=== PATIENT | female | born 1975 | race Caucasian/White ===

== ENCOUNTER → 2016-10-24 | Outpatient (CLI) | payer MEDICAID ==
[~2016-10-24] MED LIST: DIAZEPAM5 MG PO; EFFEXOR XR 75MG75 MG PO; GABAPENTIN TAB600 MG PO; HYDROCODONE1 TABLET PO; KEFLEX 500MG.500 MG PO; PERCOCET 325 MG1 TA3 PO; PREDNISONE 10MG10 MG PO; SEPTRA DS 800 M1 TAB PO; VENLAFAXINE HCL50 MG PO; VICODIN 5/500 T1 TAB PO
[2016-10-24 16:00] LABS: AMPHETAMINES/METAMPHETAMINES NEGATIVE ng/mL (<1000)
[2016-11-01 10:40] LABS: Opiates Negative (Cutoff=100)
== END ==
LOC: LAB 13:40
PROVIDERS: Emergency Medicine
DX: Z79.899 Other long term (current) drug therapy (principal)

== ENCOUNTER 2017-03-18 21:46 | Emergency (ER) | payer MEDICAID ==
[~2017-03-18] VITALS: Ht 160 cm; Wt 57.2 kg
--- NOTE | 2017-03-18 22:35 | Emergency Room Report ---
History of Present Illness Time Seen by [id number] Presenting Problem in Triage Pt arrived:Walked Presenting Problem:CHRONIC low back pain exacerbation not related to recent re- injury or stress. 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 N Clinical Suspician of Infection? N Mental Status: 1 - Regular (Normal Baseline) Sepsis Risk:Low Sepsis Risk Have you (or family members/close friends) recently traveled outside the [place]? N If Yes, where/when: Have you had exposure to infectious disease within the past month? N TB? Other? Specify: Source patient, RN notes reviewed, family, old records Exam Limitations no limitations Comment pt with back pain with hx of l/s disc injury and dyemennorhea Cardiac Chest Pain Chest pain indicative of cardiac No Timing/Duration this evening Severity moderate ALLERGIES Coded Allergies: MDX - Azithromycin (AZITHROMYCIN) (Mild, DEHYDRATION 02/04/15) Home Medications Reported Medications Diazepam (Diazepam 5MG) 5 MG PO DAILY OXYCODONE 7.5MG/[id number] (Oxycodon-Acetaminophen 7.5-325) 1 TAB PO TID VENLAFAXINE HCL (Effexor 50MG (GEQ)) 75 MG PO DAILY Gabapentin 600 MG PO TID History Medical History General CAD? No Angina: No [place]: No Hypertension? No Hyperlipidemia? No CHF? No COPD? No Asthma? No Anemia? No Hernia? No Thyroid Problems? No Hypothyroidism? No CVA? No Seizures? No Diabetes? No End Stage Renal Disease? No UTI? Yes Stones? No GB Disease: No Nephritic Syndrome? No Asplenia? No Hepatitis? No Sickle Cell Disease? No Arthritis? Yes Cataracts? No Glaucoma? No MRSA? No TB? No Cancer? No Immunization Hx DT/Tetanus 5-10 YRS Surgical Hx Previous Surgery?Y C-SECTIONS X 4 TUBAL LIGATION (TWICE) HAT CONDITIONER Hx LMP Now Social History Smoking Hx Smoker: Current Every Day Smoker Tobacco: Yes Type Cigarettes Packs/day < 1 Pack Alcohol Alcohol: No Drugs none Review of Systems All Other Systems Reviewed and Negative Constitutional denies fever Eyes denies drainage ENT denies: ear discharge, epistaxis, throat pain. Respiratory denies cough, denies shortness of breath, denies wheezing Cardiovascular denies chest pain, denies palpitations, denies syncope Gastrointestinal denies abdominal pain, denies diarrhea, denies vomiting Genitourinary see HPI, abnormal vaginal bleeding. denies: dysuria, frequency, hesitancy, hematuria. Musculoskeletal see HPI, back pain, denies joint pain, denies neck pain Skin denies rash Psychiatric/Neurological denies headache, denies seizure Physical Exam Vital Signs Vital Signs Date Time Temp Pulse Resp B/P Pulse O2 O2 Flow FiO2 Ox Delivery Rate 03/18 2228 98.6 87 14 96 03/18 215 98.6 87 14 96 - WBC >12,000 or <4,000 or 10% bands? 2 or more SIRS Criteria Met? B/P: MAP:85 Creatinine >2.0? UA output<0.5ml/kg/hr for 2 hrs? Platelet count >100,000? Lactate >2.0mmol/1? INR >1.2 or PTT > than 60 sec? Evidence of Organ Dysfunction? Provider documented clinical suspician of infection? N Sepsis Criteria Count: 0 Sepsis Risk: Low Sepsis Risk General Appearance no apparent distress Eye Exam - bilateral eye PERRL, bilateral eye EOMI Ear, Nose, Throat normal ENT inspection Neck supple Respiratory Status No: respiratory distress. 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 No Departure Departure Time of Disposition 2226 Disposition DC Home or Self Care(routine) Clinical Impression Primary Impression: Lumbar disc disease with radiculopathy Secondary Impressions: Dysmenorrhea, unspecified Condition STABLE Patient Instructions DI for Low Back Pain Additional Instructions see pcp for follow up Discharge Counseling Counseled pt/family regarding diagnosis, test results, medications/RX, follow up needs ED Critical Care Critical Care No at 2234
--- NOTE | 2017-03-18 22:35 | Emergency Room Report ---
History of Present Illness Time Seen by [id number] Presenting Problem in Triage Pt arrived:Walked Presenting Problem:CHRONIC low back pain exacerbation not related to recent re- injury or stress. 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 N Clinical Suspician of Infection? N Mental Status: 1 - Regular (Normal Baseline) Sepsis Risk:Low Sepsis Risk Have you (or family members/close friends) recently traveled outside the [place]? N If Yes, where/when: Have you had exposure to infectious disease within the past month? N TB? Other? Specify: Source patient, RN notes reviewed, family, old records Exam Limitations no limitations Comment pt with back pain with hx of l/s disc injury and dyemennorhea Cardiac Chest Pain Chest pain indicative of cardiac No Timing/Duration this evening Severity moderate ALLERGIES Coded Allergies: MDX - Azithromycin (AZITHROMYCIN) (Mild, DEHYDRATION 02/04/15) Home Medications Reported Medications Diazepam (Diazepam 5MG) 5 MG PO DAILY OXYCODONE 7.5MG/[id number] (Oxycodon-Acetaminophen 7.5-325) 1 TAB PO TID VENLAFAXINE HCL (Effexor 50MG (GEQ)) 75 MG PO DAILY Gabapentin 600 MG PO TID History Medical History General CAD? No Angina: No [place]: No Hypertension? No Hyperlipidemia? No CHF? No COPD? No Asthma? No Anemia? No Hernia? No Thyroid Problems? No Hypothyroidism? No CVA? No Seizures? No Diabetes? No End Stage Renal Disease? No UTI? Yes Stones? No GB Disease: No Nephritic Syndrome? No Asplenia? No Hepatitis? No Sickle Cell Disease? No Arthritis? Yes Cataracts? No Glaucoma? No MRSA? No TB? No Cancer? 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 Respiratory denies cough, denies shortness of breath, denies wheezing Cardiovascular denies chest pain, denies palpitations, denies syncope Gastrointestinal denies abdominal pain, denies diarrhea, denies vomiting Genitourinary see HPI, abnormal vaginal bleeding. denies: dysuria, frequency, hesitancy, hematuria. Musculoskeletal see HPI, back pain, denies joint pain, denies neck pain Skin denies rash Psychiatric/Neurological denies headache, denies seizure Physical Exam Vital Signs Vital Signs Date Time Temp Pulse Resp B/P Pulse O2 O2 Flow FiO2 Ox Delivery Rate 03/18 2228 98.6 87 14 96 03/18 215 98.6 87 14 96 - WBC >12,000 or <4,000 or 10% bands? 2 or more SIRS Criteria Met? B/P: MAP:85 Creatinine >2.0? UA output<0.5ml/kg/hr for 2 hrs? Platelet count >100,000? Lactate >2.0mmol/1? INR >1.2 or PTT > than 60 sec? Evidence of Organ Dysfunction? Provider documented clinical suspician of infection? N Sepsis Criteria Count: 0 Sepsis Risk: Low Sepsis Risk General Appearance no apparent distress Eye Exam - bilateral eye PERRL, bilateral eye EOMI Ear, Nose, Throat normal ENT inspection Neck supple Respiratory Status No: respiratory distress. 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 No Departure Departure Time of Disposition 2226 Disposition DC Home or Self Care(routine) Clinical Impression Primary Impression: Lumbar disc disease with radiculopathy Secondary Impressions: Dysmenorrhea, unspecified Condition STABLE Patient Instructions DI for Low Back Pain Additional Instructions see pcp for follow up Discharge Counseling Counseled pt/family regarding diagnosis, test results, medications/RX, follow up needs ED Critical Care Critical Care No at 2234
[2017-03-18 22:57] VITALS: BP 115/71
--- OUTSIDE RECORDS SUMMARY | 2017-03-18 23:10 | External Medical Summary Rpt ---
Author Author , HASMUKH Organization HASMUKH Address Unknown Phone [email or web address] Care Team Providers Care Equipment Processer Storage Name Role Phone [employer] Unavailable Unavailable INC, [employer] DOUG ARRON, DOUG Unavailable Unavailable ARRON SAUL BLACKBURN MD, PSC, Unavailable Unavailable SAUL BLACKBURN MD, PSC BESSON, VARGAS Lynn, Unavailable Unavailable BESVARGAS SANCHEZ OATES, OATES Unavailable Unavailable BRACKEN MAYTE, BRACKEN Unavailable Unavailable MAYTE BRACKEN MAYTE, BRACKEN Unavailable Unavailable MAYTE HAROLDO MAUREEN, HAROLDO Unavailable Unavailable MAUREEN HAROLDO MAUREEN, HAROLDO Unavailable Unavailable MAUREEN BUX ANJ, BUX ANJ Unavailable Unavailable [facility] GARCIA PACHECO, GARCIA Unavailable Unavailable [facility] GARCIA PACHECO, GARCIA Unavailable Unavailable [facility] Un[facility], [facility] Unavailable Unavailable PHYSICIANS, [facility] HARMAN LARA, HARMAN Unavailable Unavailable LARA DUFF MAYTE, DUFF MAYTE Unavailable Unavailable [facility], [facility] Unavailable Unavailable JOSE JOSÉ MIGUEL, JOSE Unavailable Unavailable JOSÉ MIGUEL [facility], Unavailable Unavailable [facility] GIUSEPPE ANT, GIUSEPPE Unavailable Unavailable ANT YAIR, YAIR Unavailable Unavailable YAIR VICENTA, YAIR Unavailable Unavailable VICENTA PROCTOR BEA, PROCTOR BEA Unavailable Unavailable [facility] Un[facility] Un[facility], [facility], Unavailable Unavailable [facility] FANG TRA, FANG TRA Unavailable Unavailable GHANSHYAM CHR, GHANSHYAM Unavailable Unavailable CHR GHANSHYAM CHR, GHANSHYAM Unavailable Unavailable [facility] Unavailable Unavailable [facility], [facility] Unavailable Unavailable [facility], [facility] Unavailable Unavailable [facility], [facility] Unavailable Unavailable SERVICES, [facility] REJI GONZALES JR Unavailable Unavailable Nito, REJI GONZALES JR, MORGAN Unavailable Unavailable GERSON NIETO, KARL Unavailable Unavailable GERSON BONNER VIR, BONNER VIR Unavailable Unavailable [facility] VIR, [facility] VIR Unavailable Unavailable ROEBKER JAM, ROEBKER Unavailable Unavailable JAM ROEBKER JAM, ROEBKER Unavailable Unavailable JAM OLIVEIRA, OLIVEIRA Unavailable Unavailable BARBDARVIN BOOTH, BARB Unavailable Unavailable LEOBARDO ROJO, RAJESH ROJO Unavailable Unavailable ARI ANASTACIA, ARI Unavailable Unavailable ANASTACIA [facility], Unavailable Unavailable [facility], Unavailable Unavailable [facility] JA[facility], Unavailable Unavailable [facility] JAIME [facility] Unavailable Unavailable #[id number], [facility] Unavailable Unavailable #591, [facility] # Unavailable Unavailable [id number], [facility] # [id number] Purpose Continuity of Care Document - 11-03-2007 through 2016 Problems Code Diagnosis DOS Provider Status R300 DYSURIA 02-13-2017 [facility] [id number] OTHER LONG 02-13-[address] [facility] DRUG THERAPY K047 PERIAPICAL 12-19-2016 [facility] WITHOUT GROUP SINUS M5116 INTERVERTEB 12-19-2016 [facility] R[facility] DISC [facility] D/O GROUP W/RADICULOP ATHY LUMB RGN K029 DENTAL 11-27-2016 [facility]ERGENCY UNSPECIFIED PHYSICIANS K0889 OTHER 11-27-2016 [facility] SPECIFIED EMERGENCY DISORDERS PHYSICIANS OF TEETH SUPPORT STRCT Z1231 ENCOUNTER 11-20-2016 [facility] SCREENING [facility]ANS MAMMO MALIG GROUP NEOPLASM BREAST M1288 OTHER 10-24-2016 [facility] SPECIFIC PHYSICIANS ARTHROPATHI GROUP ES NEC OTHER SPEC SITE M9983 OTHER 10-24-2016 [facility] BIOMECHANIC PHYSICIANS AL LESIONS GROUP OF LUMBAR REGION M4316 SPONDYLOLIS 10-10-2016 [facility] REGION M5117 INTERVERTEB 10-10-2016 [facility] D/O IMAGING ASS W/RADICULOP ATHY LS RGN M545 LOW BACK 10-10-2016 [facility] M5126 OTH 09-26-2016 [facility] INTERVERTEB PHYSICIANS RAL DISC GROUP DISPLACEMEN T LUMBAR RGN M5127 OTH 01-18-2016 [facility] RAL DISC INC DISPLACEMEN T LS REGION R1031 RIGHT LOWER 09-17-2015 [facility] PAIN PHYSICIANS R197 DIARRHEA 09-17-2015 [facility] UNSPECIFIED [facility]ERGENCY PHYSICIANS 89270 DEGEN 03-31-2015 SAUL BLACKBURN LUMBAR/LUMB , PSC OSACRAL INTERVERTEB RAL DISC 7244 THORACIC/NEAL 03-31-2015 TASHA MURILLO MD, PSC NEURITIS/RA DICULITIS UNSPEC V5789 OTHER 12-09-2014 [facility] ION PROCEDURE OTHER 4610 ACUTE 09-21-2014 [facility] MAX[facility]ARY [facility] SINUSITIS PHYSICIANS 66267 DISPLCMT 09-10-2014 [facility] 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 7384 ACQUIRED 09-09-2014 [facility] 7213 LUMBOSACRAL 08-03-2014 [facility] SPONDYLOSIS IMAGING ASS WITHOUT MYELOPATHY 7245 UNSPECIFIED 08-03-2014 [facility] V571 OTHER 07-12-2014 [facility] CON[facility] 73152 CHEST PAIN 03-04-2014 GHANSHYAM CHR UNSPECIFIED 7242 LUMBAGO 12-08-2013 JOSE JOSÉ MIGUEL 6212 HYPERTROPHY 12-02-2013 [facility] OF UTERUS 6253 DYSMENORRHE 12-02-2013 [facility] A 6259 UNSPEC 12-02-2013 [facility] SYMPTOM ASSOC W/FEMALE GENITAL ORGANS 80444 ABDOMINAL 12-02-2013 G[facility] PAIN RIGHT LOWER QUADRANT 6238 OTHER 11-30-2013 EN[facility] HU SPECIFIED NONINFLAMMA TORY DISORDER VAGINA 6829 CELLULITIS 12-08-2012 KARL GERSON AND ABSCESS OF UNSPECIFIED SITE 07707 GENERALIZED 08-21-2012 [facility] ANXIETY DISORDER V5869 LONG-TERM 08-21-2012 [facility] VIR (CURRENT) USE OF OTHER MEDICATIONS 7840 HEADACHE 08-20-2012 ROEBKER JAM 920 CONTUSION 08-20-2012 HAROLDO MAUREEN OF FACE SCALP AND NECK EXCEPT EYE 9599 INJURY 08-20-2012 ROEBKER JAM OTHER AND UNSPECIFIED UNSPECIFIED SITE 6235 LEUKORRHEA 04-19-2012 [facility] SPECIFIED MED CTR INFECTIVE 5283 CELLULITIS 03-17-2011 [facility] ABSCESS [facility] OF ORAL INTERNAL SOFT MED TISSUES 6826 CELLULITIS 03-17-2011 [facility] EMERGENCY OF LEG SERVICES EXCEPT FOOT 1109 DERMATOPHYT 01-29-2011 [facility] OSIS OF [facility] UNSPECIFIED INTERNAL SITE MEDI 76330 ABDOMINAL 01-06-2011 [facility] PAIN, EMERGENCY GENERALIZED SERVICES 7820 DISTURBANCE 08-28-2010 [facility] 84442 OTHER DRUG 08-28-2010 [facility] 91990 UNSPECIFIED 11-27-2008 [facility] INFECTIVE [facility] OTITIS INTERNAL EXTERNA MED 3814 NONSUPPRATV 11-27-2008 [facility] OTITIS [facility] MEDIA NOT INTERNAL SPEC MED ACUT/CHRON 485 BRONCHOPNEU 11-27-2008 [facility] MONIA [facility] ORGANISM INTERNAL UNSPECIFIED MED 7862 COUGH 11-27-2008 [facility] INTERNAL MED 00480 OTHER 11-20-2007 [facility] ANXIETY [facility] STATES INTERNAL MED 15305 RESTLESS 11-20-2007 [facility] LEGS [facility] SYNDROME INTERNAL MED 26542 UNSPECIFIED 11-14-2007 [facility] VAGINITIS [facility] AND INTERNAL VULVOVAGINI MED TIS 7062 SEBACEOUS 11-14-2007 [facility] CYST [place] INTERNAL MED K02.9 Dental caries, unspecified K08.89 Other specified disorders of teeth and supporting structures Medications Na ND Rx Da Fi Fi Am Da Di Ph RX Ph St me C No te ll ll ou ys ag ar # ys at rm s nt no ma ic us Or Da si cy ia de te s n re d OX 13 07 07 90 30 00 CL Ac YC 10 -0 -2 .0 00 IN ti OD 70 5- 8- 00 00 IC ve ON 04 20 20 43 E- 40 17 17 59 PH AC 1 11 AR ET MA AM CY IN OP HE N 5- 32 5 TR 00 07 07 30 30 00 CL Ac AZ 60 -0 -2 .0 00 IN ti OD 36 5- 8- 00 00 IC ve ON 16 20 20 43 E 02 17 17 59 PH 50 1 06 AR MA MG CY TA BL ET FL 68 07 07 5. 5 00 CL Ac UC 46 -0 -2 00 00 IN ti ON 20 5- 8- 0 00 IC ve AZ 10 20 20 43 OL 34 17 17 59 PH E 0 05 AR 15 MA 0 CY MG TA BL ET PH 69 07 07 10 5 00 CL Ac EN 36 -0 -2 .0 00 IN ti AZ 70 5- 8- 00 00 IC ve OP 16 20 20 43 YR 30 17 17 59 PH ID 4 04 AR IN MA E CY 20 0 MG TA B CI 16 07 07 14 7 00 CL Ac NH 57 -0 -2 .0 00 IN ti OF 10 5- 8- 00 00 IC ve LO 41 20 20 43 XA 21 17 17 59 PH CI 0 03 AR N MA HC CY L 50 0 MG TA B GA 68 06 07 90 30 00 CL Ac BA 38 -3 -2 .0 00 IN ti PE 20 0- 8- 00 00 IC ve NT 20 20 20 42 IN 50 17 17 01 PH 5 20 AR 80 MA 0 CY MG TA BL ET GA 68 06 06 90 30 00 CL Ac BA 38 -0 -3 .0 00 IN ti PE 20 1- 0- 00 00 IC ve NT 20 20 20 42 IN 50 17 17 01 PH 5 20 AR 80 MA 0 CY MG TA BL ET OX 13 06 06 90 30 00 CL Ac YC 10 -0 -3 .0 00 IN ti OD 70 7- 0- 00 00 IC ve ON 20 20 43 E- 40 17 17 33 PH AC 1 32 AR ET MA AM CY IN OP HE N 5- 32 5 OX 13 05 06 90 30 00 CL Ac YC 10 -1 -0 .0 00 IN ti OD 70 0- 2- 00 00 IC ve ON 20 20 43 E- 40 17 17 07 PH AC 1 04 AR ET MA AM CY IN OP HE N 5- 32 5 GA 68 05 05 90 30 00 CL Ac BA 38 -0 -2 .0 00 IN ti PE 20 3- 6- 00 00 IC ve NT 20 20 20 42 IN 50 17 17 01 PH 5 20 AR 80 MA 0 CY MG TA BL ET VE 68 05 05 30 30 00 CL Ac NL 38 -0 -2 .0 00 IN ti AF 20 3- 6- 00 00 IC ve AX 03 20 20 42 IN 61 17 17 01 PH E 6 19 AR HC MA L CY ER 15 0 MG CA P IB 53 04 05 16 8 00 HO Ac UP 74 -2 -1 .0 00 ME ti RO 60 1- 9- 00 06 TO ve FE 46 20 20 08 WN N 50 17 17 55 60 5 31 PH 0 AR MG MA CY TA BL OF ET CY NT HI AN A FL 68 04 05 3. 9 00 CL Ac UC 46 -2 -1 00 00 IN ti ON 20 4- 9- 0 00 IC ve AZ 10 20 20 42 OL 34 17 17 89 PH E 0 74 AR 15 MA 0 CY MG TA BL ET CL 63 04 05 30 10 00 WA Ac IN 30 -1 -1 .0 00 L- ti DA 40 8- 2- 00 06 MA ve MY 69 20 20 11 RT CI 30 17 17 00 N 1 85 PH HC AR L MA 30 CY 0 MG #5 84 CA PS UL E OX 13 04 05 90 30 00 CL Ac YC 10 -1 -0 .0 00 IN ti OD 70 2- 5- 00 00 IC ve ON 11 29 20 42 E- 40 17 17 77 PH AC 1 16 AR ET MA AM CY IN OP HE N 5- 32 5 GA 68 04 04 90 30 00 CL Ac BA 38 -0 -2 .0 00 IN ti PE 20 5- 8- 00 00 IC ve NT 20 20 20 42 IN 50 17 17 01 PH 5 20 AR 80 MA 0 CY MG TA BL ET VE 68 04 04 30 30 00 CL Ac NL 38 -0 -2 .0 00 IN ti AF 20 5- 8- 00 00 IC ve AX 03 20 20 42 IN 61 17 17 01 PH E 6 19 AR HC MA L CY ER 15 0 MG CA P OX 13 03 04 90 30 00 CL Ac YC 10 -1 -0 .0 00 IN ti OD 70 5- 7- 00 00 IC ve ON 11 29 20 42 E- 40 17 17 52 PH AC 1 25 AR ET MA AM CY IN OP HE N 5- 32 5 VE 68 03 03 30 30 00 CL Ac NL 38 -0 -3 .0 00 IN ti AF 20 7- 1- 00 00 IC ve AX 03 20 20 42 IN 61 17 17 01 PH E 6 19 AR HC MA L CY ER 15 0 MG CA P GA 68 03 03 90 30 00 CL Ac BA 38 -0 -3 .0 00 IN ti PE 20 7- 1- 00 00 IC ve NT 20 20 20 42 IN 50 17 17 01 PH 5 20 AR 80 MA 0 CY MG TA BL ET OX 13 02 03 90 30 00 CL Ac YC 10 -1 -1 .0 00 IN ti OD 70 5- 0- 00 00 IC ve ON 20 20 42 E- 40 17 17 23 PH AC 1 89 AR ET MA AM CY IN OP HE N 5- 32 5 GA 68 02 03 90 30 00 CL Ac BA 38 -0 -0 .0 00 IN ti PE 20 8- 3- 00 00 IC ve NT 20 20 20 42 IN 50 17 17 01 PH 5 20 AR 80 MA 0 CY MG TA BL ET VE 68 02 03 30 30 00 CL Ac NL 38 -0 -0 .0 00 IN ti AF 20 8- 3- 00 00 IC ve AX 03 20 20 42 IN 61 17 17 01 PH E 6 19 AR HC MA L CY ER 15 0 MG CA P OX 68 01 02 63 21 00 CL Ac YC 30 -2 -1 .0 00 IN ti OD 80 5- 7- 00 00 IC ve ON 84 20 20 42 E- 10 17 17 01 PH AC 1 07 AR ET MA AM CY IN OP HE N 5- 32 5 GA 68 01 02 90 30 00 CL Ac BA 38 -1 -0 .0 00 IN ti PE 20 0- 3- 00 00 IC ve NT 20 20 20 41 IN 50 17 17 82 PH 5 64 AR 80 MA 0 CY MG TA BL ET VE 68 01 02 30 30 00 CL Ac NL 38 -1 -0 .0 00 IN ti AF 20 0- 3- 00 00 IC ve AX 03 20 20 41 IN 61 17 17 82 PH E 6 66 AR HC MA L CY ER 15 0 MG CA P OX 68 12 01 90 30 00 CL Ac YC 30 -2 -2 .0 00 IN ti OD 80 8- 7- 00 00 IC ve ON 84 20 20 41 E- 10 16 17 74 PH AC 1 80 AR ET MA AM CY IN OP HE N 5- 32 5 DI 51 12 01 30 30 00 CL Ac AZ 86 -2 -2 .0 00 IN ti EP 20 8- 7- 00 00 IC ve AM 06 20 20 41 5 31 16 17 74 PH 0 81 AR MG MA CY TA BL ET GA 68 12 01 90 30 00 CL Ac BA 38 -1 -1 .0 00 IN ti PE 20 3- 3- 00 00 IC ve NT 20 20 20 41 IN 50 16 17 34 PH 5 52 AR 80 MA 0 CY MG TA BL ET VE 65 12 01 30 30 00 CL Ac NL 86 -1 -1 .0 00 IN ti AF 20 3- 3- 00 00 IC ve AX 69 20 20 40 IN 70 16 17 85 PH E 5 47 AR HC MA L CY ER 15 0 MG CA P DI 00 10 10 1 30 30 CL 24 BE Ac AZ 59 -2 -2 .0 IN 80 SS ti EP 15 4- 4- 00 IC 26 ON ve AM 61 20 20 5 [address] 0 AR EP MG MA HE CY N TA A BL LL ET C DI 00 09 09 0 30 30 CL 24 BE Ac AZ 59 -2 -2 .0 IN 60 SS ti EP 15 1- 1- 00 IC 51 ON ve AM 61 20 20 5 [address] 0 AR EP MG MA HE CY N TA A BL LL ET C EF 00 05 09 1 30 30 CL 23 BE Ac FE 00 -1 -2 .0 IN 87 SS ti XO 80 7- 1- 00 IC 01 ON ve R 83 20 20 XR [address] 1 AR EP 75 MA HE CY N MG A LL CA C PS UL E DI 00 08 08 0 30 30 CL 24 BE Ac AZ 59 -2 -2 .0 IN 41 SS ti EP 15 2- 2- 00 IC 52 ON ve AM 61 20 20 5 [address] 0 AR EP MG MA HE CY N TA A BL LL ET C EF 00 05 08 1 30 30 CL 23 BE Ac FE 00 -1 -2 .0 IN 87 SS ti XO 80 7- 2- 00 IC 01 ON ve R 83 20 20 XR [address] 1 AR EP 75 MA HE CY N MG A LL CA C PS UL E MAE 00 08 08 0 20 10 CL 24 FL Ac LF 60 -0 -0 .0 IN 32 OR ti AM 35 5- 5- 00 IC 31 EN ve ET 78 20 20 CE HO 12 11 11 PH XA 8 AR SA ZO MA RA LE CY H -T L MP LL C DS TA BL ET 00 08 08 0 20 5 CL 24 FL Ac 40 -0 -0 .0 IN 31 OR ti 60 4- 4- 00 IC 81 EN ve 35 20 20 CE 70 11 11 PH 5 AR SA MA RA CY H L LL C MU 45 08 08 0 22 7 CL 24 FL Ac PI 80 -0 -0 .0 IN 31 OR ti RO 20 4- 4- 00 IC 82 EN ve CI 11 20 20 CE N 22 11 11 PH 2% 2 AR SA MA RA OI CY H NT L ME LL NT C DI 00 05 07 1 30 30 CL 23 BE Ac AZ 59 -1 -1 .0 IN 87 SS ti EP 15 7- 1- 00 IC 06 ON ve AM 61 20 20 5 [address] 0 AR EP MG MA HE CY N TA A BL LL ET C EF 00 05 07 1 30 30 CL 23 BE Ac FE 00 -1 -0 .0 IN 87 SS ti XO 80 7- 6- 00 IC 01 ON ve R 83 20 20 XR [address] 1 AR EP 75 MA HE CY N MG A LL CA C PS UL E MAE 53 07 07 0 20 10 WA 71 MC Ac LF 74 -0 -0 .0 L- 25 KE ti AM 60 3- 3- 00 MA 60 GA ve ET 27 20 20 RT 6 E HO 20 11 11 JR XA 5 PH ZO AR WI LE MA LL -T CY IA MP # M F DS 10 05 TA 91 BL ET CL 51 06 06 1 60 14 CL 24 FL Ac OT 67 -2 -2 .0 IN 07 OR ti RI 22 0- 0- 00 IC 32 EN ve MA 00 20 20 CE ZO 20 11 11 PH LE 2 AR SA MA RA 1% CY H L CR LL EA C M EF 00 05 05 1 30 30 CL 23 BE Ac FE 00 -1 -1 .0 IN 87 SS ti XO 80 7- 7- 00 IC 01 ON ve R 83 20 20 XR [address] 1 AR EP 75 MA HE CY N MG A LL CA C PS UL E DI 00 05 05 1 30 30 CL 23 BE Ac AZ 59 -1 -1 .0 IN 87 SS ti EP 15 7- 7- 00 IC 06 ON ve AM 61 20 20 5 [address] 0 AR EP MG MA HE CY N TA A BL LL ET C EF 00 04 04 0 30 30 CL 23 BE Ac FE 00 -0 -0 .0 IN 58 SS ti XO 80 2- 2- 00 IC 57 ON ve R 83 20 20 XR [address] 0 AR EP 75 MA HE CY N MG A LL CA C PS UL E VE 68 01 02 3 30 30 CL 23 BE Ac NL 38 -1 -1 .0 IN 09 SS ti AF 20 9- 8- 00 IC 75 ON ve AX 01 20 20 IN [address] E 1 AR EP HC MA HE L CY N 37 A .5 LL C MG TA BL ET VE 68 01 01 3 30 30 CL 23 BE Ac NL 38 -1 -1 .0 IN 09 SS ti AF 20 9- 9- 00 IC 75 ON ve AX 01 20 20 IN [address] E 1 AR EP HC MA HE L CY N 37 A .5 LL C MG TA BL ET EF 00 01 01 0 30 30 CL 23 BE Ac FE 00 -1 -1 .0 IN 04 SS ti XO 80 2- 2- 00 IC 92 ON ve R 83 20 20 XR [address] 2 AR EP 75 MA HE CY N MG A LL CA C PS UL E VE 00 02 07 05 60 30 CL 18 BE Ac NL 37 -1 -1 .0 IN 75 SS ti AF 84 3- 6- 00 IC 72 ON ve AX 88 20 20 IN [address] E 1 AR EP HC MA HE L CY N 37 A .5 MG TA BL ET DI 00 06 06 00 60 30 CL 19 BE Ac AZ 59 -0 -1 .0 IN 51 SS ti EP 15 8- 8- 00 IC 72 ON ve AM 61 20 20 5 [address] 0 AR EP MG MA HE CY N TA A BL ET VE 00 02 06 04 60 30 CL 18 BE Ac NL 37 -1 -1 .0 IN 75 SS ti AF 84 3- 8- 00 IC 72 ON ve AX 88 20 20 IN [address] E 1 AR EP HC MA HE L CY N 37 A .5 MG TA BL ET VE 00 02 05 03 60 30 CL 18 BE Ac NL 37 -1 -2 .0 IN 75 SS ti AF 84 3- 1- 00 IC 72 ON ve AX 88 20 20 IN [address] E 1 AR EP HC MA HE L CY N 37 A .5 MG TA BL ET DI 00 04 05 00 60 30 CL 19 BE Ac AZ 59 -1 -0 .0 IN 20 SS ti EP 15 8- 7- 00 IC 44 ON ve AM 61 20 20 5 [address] 0 AR EP MG MA HE CY N TA A BL ET AM 66 04 05 00 20 10 CL 19 BE Ac OX 68 -1 -0 .0 IN 20 SS ti -C 51 8- 7- 00 IC 45 ON ve LA 00 20 20 V [address] 87 0 AR EP 5- MA HE 12 CY N 5 A MG TA BL ET 60 04 05 00 24 5 CL 19 BE Ac 25 -1 -0 0. IN 20 SS ti 80 8- 7- 00 IC 47 ON ve 23 20 20 0 [address] 6 AR EP MA HE CY N A CI 00 04 05 00 7. 7 CL 19 BE Ac NH 06 -1 -0 50 IN 20 SS ti OD 58 8- 7- 0 IC 46 ON ve EX 53 20 20 [address] OT 2 AR EP IC MA HE CY N MAE A SP EN SI ON 58 04 04 00 30 5 CL 19 MC Ac 17 -1 -2 .0 IN 18 KE ti 70 6- 3- 00 IC 92 GA ve 09 20 20 E 10 09 09 PH JR 4 AR MA WI CY LL IA M F VE 00 02 04 02 60 30 CL 18 BE Ac NL 37 -1 -2 .0 IN 75 SS ti AF 84 3- 3- 00 IC 72 ON ve AX 88 20 20 IN [address] E 1 AR EP HC MA HE L CY N 37 A .5 MG TA BL ET DI 00 03 04 00 60 30 CL 19 BE Ac AZ 59 -2 -0 .0 IN 04 SS ti EP 15 4- 9- 00 IC 96 ON ve AM 61 20 20 5 [address] 0 AR EP MG MA HE CY N TA A BL ET VE 00 02 03 01 60 30 CL 18 BE Ac NL 37 -1 -2 .0 IN 75 SS ti AF 84 3- 6- 00 IC 72 ON ve AX 88 20 20 IN [address] E 1 AR EP HC MA HE L CY N 37 A .5 MG TA BL ET VE 00 02 02 00 60 30 CL 18 BE Ac NL 37 -1 -2 .0 IN 75 SS ti AF 84 3- 6- 00 IC 72 ON ve AX 88 20 20 IN [address] E 1 AR EP HC MA HE L CY N 37 A .5 MG TA BL ET DI 00 11 02 02 60 30 CL 18 MC Ac AZ 59 -0 -1 .0 IN 13 KE ti EP 15 7- 2- 00 IC 92 GA ve AM 61 20 20 E 5 91 08 09 PH JR 0 AR MG MA WI CY LL TA IA BL M ET F VE 00 12 01 00 60 30 WA 74 No Ac NL 09 -1 -3 .0 L- 57 t ti AF 37 7- 0- 00 MA 00 Av ve AX 38 20 20 RT 6 ai IN 00 08 09 la E 1 PH bl HC AR e L MA 37 CY .5 #5 MG 84 TA BL ET VE 00 06 01 01 60 30 CL 18 BE Ac NL 37 -2 -0 .0 IN 20 SS ti AF 84 4- 1- 00 IC 21 ON ve AX 88 20 20 IN [address] E 1 AR EP HC MA HE L CY N 37 A .5 MG TA BL ET DI 00 11 01 01 60 30 CL 18 MC Ac AZ 59 -0 -0 .0 IN 13 KE ti EP 15 7- 1- 00 IC 92 GA ve AM 61 20 20 E 5 91 08 09 PH JR 0 AR MG MA WI CY LL TA IA BL M ET F VE 00 06 12 00 60 30 CL 18 BE Ac NL 37 -2 -0 .0 IN 20 SS ti AF 84 4- 4- 00 IC 21 ON ve AX 88 20 20 IN [address] E 1 AR EP HC MA HE L CY N 37 A .5 MG TA BL ET ME 59 11 11 00 21 6 CL 18 HU Ac TH 74 -0 -2 .0 IN 13 NT ti YL 60 7- 0- 00 IC 91 ER ve NH 00 20 20 ED 10 08 08 PH NA NI 3 AR NC SO MA Y LO CY C NE 4 MG DO SE PK DI 00 11 11 00 60 30 CL 18 MC Ac AZ 59 -0 -2 .0 IN 13 KE ti EP 15 7- 0- 00 IC 92 GA ve AM 61 20 20 E 5 91 08 08 PH JR 0 AR MG MA WI CY LL TA IA BL M ET F VE 00 06 11 02 60 30 WA 69 BE Ac NL 09 -2 -0 .0 L- 77 SS ti AF 37 4- 7- 00 MA 01 ON ve AX 38 20 20 RT 6 IN [address] E 1 PH EP HC AR HE L MA N 37 CY A .5 #5 MG 91 TA BL ET VE 00 06 09 01 60 30 WA 69 BE Ac NL 09 -2 -1 .0 L- 77 SS ti AF 37 4- 1- 00 MA 01 ON ve AX 38 20 20 RT 6 IN [address] E 1 PH EP HC AR HE L MA N 37 CY A .5 #5 MG 91 TA BL ET VE 00 06 08 01 60 30 WA 69 BE Ac NL 09 -2 -1 .0 L- 77 SS ti AF 37 4- 4- 00 MA 01 ON ve AX 38 20 20 RT 6 IN [address] E 1 PH EP HC AR HE L MA N 37 CY A .5 #5 MG 91 TA BL ET VE 00 06 07 00 60 30 WA 69 BE Ac NL 09 -2 -1 .0 L- 77 SS ti AF 37 4- 7- 00 MA 01 ON ve AX 38 20 20 RT 6 IN [address] E 1 PH EP HC AR HE L MA N 37 CY A .5 #5 MG 91 TA BL ET DI 00 04 07 00 60 30 WA 44 MC Ac AZ 37 -1 -1 .0 L- 69 KE ti EP 80 0- 7- 00 MA 37 GA ve AM 34 20 20 RT 0 E 5 50 08 08 JR 5 PH MG AR WI MA LL TA CY IA BL M ET #5 F 91 VE 00 06 07 00 60 30 WA 69 No Ac NL 09 -2 -0 .0 L- 77 t ti AF 37 4- 3- 00 MA 01 Av ve AX 38 20 20 RT 6 ai IN 00 08 08 la E 1 PH bl HC AR e L MA 37 CY .5 #5 MG 91 TA BL ET DI 00 04 06 01 60 30 CL 16 No Ac AZ 59 -1 -1 .0 IN 86 t ti EP 15 0- 2- 00 IC 02 Av ve AM 61 20 20 ai 5 91 08 08 PH la 0 AR bl MG MA e CY TA BL ET VE 00 03 06 02 60 30 WA 69 No Ac NL 09 -2 -0 .0 L- 64 t ti AF 37 0- 5- 00 MA 91 Av ve AX 38 20 20 RT 6 ai IN 00 08 08 la E 1 PH bl HC AR e L MA 37 CY .5 #5 MG 91 TA BL ET VE 00 03 05 01 60 30 WA 69 No Ac NL 09 -2 -0 .0 L- 64 t ti AF 37 0- 8- 00 MA 91 Av ve AX 38 20 20 RT 6 ai IN 00 08 08 la E 1 PH bl HC AR e L MA 37 CY .5 #5 MG 91 TA BL ET DI 00 04 04 00 60 30 CL 16 No Ac AZ 59 -1 -2 .0 IN 86 t ti EP 15 0- 4- 00 IC 02 Av ve AM 61 20 20 ai 5 91 08 08 PH la 0 AR bl MG MA e CY TA BL ET VE 00 03 04 00 60 30 WA 69 No Ac NL 09 -2 -1 .0 L- 64 t ti AF 37 0- 7- 00 MA 91 Av ve AX 38 20 20 RT 6 ai IN 00 08 08 la E 1 PH bl HC AR e L MA 37 CY .5 #5 MG 91 TA BL ET FL 68 04 04 00 1. 1 CL 16 No Ac UC 46 -0 -1 00 IN 82 t ti ON 20 4- 0- 0 IC 62 Av ve AZ 10 20 20 ai OL 34 08 08 PH la E 0 AR bl 15 MA e 0 CY MG TA BL ET 00 04 04 00 30 7 CL 16 No Ac 59 -0 -1 .0 IN 81 t ti 10 3- 0- 00 IC 92 Av ve 38 20 20 ai 50 08 08 PH la 5 AR bl MA e CY 63 03 04 00 40 10 CL 16 No Ac 30 -2 -1 .0 IN 77 t ti 40 7- 0- 00 IC 25 Av ve 65 20 20 ai 70 08 08 PH la 5 AR bl MA e CY 00 03 04 00 30 8 CL 16 No Ac 40 -2 -1 .0 IN 77 t ti 60 7- 0- 00 IC 26 Av ve 35 20 20 ai 70 08 08 PH la 5 AR bl MA e CY VE 00 01 04 00 30 30 WA 69 No Ac NL 09 -0 -0 .0 L- 55 t ti AF 37 7- 7- 00 MA 16 Av ve AX 38 20 20 RT 5 ai IN 20 08 08 la E 1 PH bl HC AR e L MA 75 CY MG #5 91 TA BL ET VE 00 02 03 00 30 30 WA 69 No Ac NL 09 -1 -2 .0 L- 59 t ti AF 37 1- 6- 00 MA 93 Av ve AX 38 20 20 RT 3 ai IN 00 08 08 la E 1 PH bl HC AR e L MA 37 CY .5 #5 MG 91 TA BL ET VE 00 01 03 00 30 30 WA 69 No Ac NL 09 -0 -2 .0 L- 55 t ti AF 37 7- 4- 00 MA 16 Av ve AX 38 20 20 RT 5 ai IN 20 08 08 la E 1 PH bl HC AR e L MA 75 CY MG #5 91 TA BL ET Procedures Procedure DOS Code Location Performer Comment SUSCEPTIB 30381 [facility] LTY STDY [facility] ANTIMICRB INC INC IAL MICRO/AGA R DILUTJ DRUG TEST 12678 [facility] PRSMV [facility] QUAL DIR INC INC OPTICAL OBS PER DAY CULTURE 89889 [facility] BACTERIAL [facility] INC INC QUANTTATI VE COLONY COUNT URINE CULTURE 92426 [facility] BCT [facility] ISOL&PRSM INC INC PTV ID ISOLATE EA URINE DRUG TEST 30857 [facility] PRSMV [facility] QUAL DIR INC INC OPTICAL OBS PER DAY DRUG TEST G0481 [facility] DEFINITV [address] [facility] [address] [address] ID INC INC METH P DAY 8-14 DRUG CL DRUG TEST G0481 [facility] DEFINITV [address] [facility] [address] [address] ID INC INC METH P DAY 8-14 DRUG CL DRUG TEST 08430 [facility] PRSMV [facility] QUAL DIR INC INC OPTICAL OBS PER DAY INJECTION J1885 [facility] 7 PHYSICIAN KETOROLAC S GROUP TROMETHAM INE PER 15 MG INJECTION J0696 [facility] 7 PHYSICIAN CEFTRIAXO S GROUP NE SODIUM PER 250 MG THERAPEUT 09596 [facility] IC 7 PHYSICIAN PROPHYLAC S GROUP TIC/DX INJECTION SUBQ/IM INJECTION J1100 [facility] 7 PHYSICIAN DEXAMETHO S GROUP SONE SODIUM PHOSPHATE 1 MG DRUG TEST 39917 [facility] QUAL DIR INC INC OPTICAL OBS PER DAY DRUG TEST 69946 [facility]V [facility] QUAL DIR INC INC OPTICAL OBS PER DAY DRUG 24677 [facility] SCREENING 7 [facility] OPIOIDS INC INC & OPIATE ANALOGS 5/MORE MRI 30552 [facility] 7 MEDICAL CANAL IMAGING LUMBAR ASS W/O CONTRAST MATERIAL 3D 07463 [facility] 7 MEDICAL W/INTERP IMAGING & ASS POSTPROCE SS SUPERVISI ON DRUG 34933 [facility] SCREENING 7 [facility] OPIOIDS INC INC & OPIATE ANALOGS 5/MORE DRUG TEST 20486 [facility] PR[facility]V [facility] QUAL DIR INC INC OPTICAL OBS PER DAY DRUG TEST 06566 [facility] QUAL DIR INC INC OPTICAL OBS PER DAY DRUG TEST G0481 [facility] DEFINITV [address] [address] ID INC INC METH P DAY 8-14 DRUG CL DRUG TEST 67411 [facility] PR[facility]V [facility] QUAL DIR INC INC OPTICAL OBS PER DAY DRUG TEST G0481 [facility] DEFINITV [address] [facility] [address] [address] ID INC INC METH P DAY 8-14 DRUG CL DRUG TST G0477 [facility] PRESUMP;C 6 [facility] PBL BEING INC INC READ DC OPT OBV ONLY DRUG TEST G0481 [facility] DEFINITV [address] [facility] [address] ID INC INC METH P DAY 8-14 DRUG CL DRUG TEST G0481 [facility] DEFINITV [address] [facility] [address] ID INC INC METH P DAY 8-14 DRUG CL DRUG TST G0477 [facility] PRESUMP;C 6 [facility] PBL [facility]ING INC INC READ DC OPT OBV ONLY DRUG TEST G0481 [facility] DEFINITV [address] [facility] [address] [address] ID INC INC METH P DAY 8-14 DRUG CL DRUG TST G0477 [facility] PRESUMP;C 6 [facility] PBL [facility] INC INC READ DC OPT OBV ONLY DRUG TST G0477 [facility] PRESUMP;C 6 [facility] P[facility] INC INC READ DC OPT OBV ONLY DRUG TEST G0481 [facility] DEFINITV [address] [facility] [address] [address] ID INC INC METH P DAY 8-14 DRUG CL DRUG TST G0477 [facility] PRESUMP;C 6 [facility] PBL [facility] INC INC READ DC OPT OBV ONLY DRUG TEST G0481 [facility] DEFINITV [address] [facility] [address] [address] ID INC INC METH P DAY 8-14 DRUG CL DRUG TST G0477 [facility] PRESUMP;C 6 [facility] INC READ DC OPT OBV ONLY DRUG TEST G0481 [facility] DEFINITV [address] [facility] [address] [facility] [address] ID INC INC METH P DAY 8-14 DRUG CL DRUG TST G0477 [facility] PRESUMP;C 6 [facility] PBL BEING INC INC READ DC OPT OBV ONLY DRUG 24469 [facility] SCREENING 6 [facility] INC INC BENZODIAZ EPINES 1-12 DRUG TST G0477 [facility] VENEGAS PRESUMP;C 6 [facility] PBL BEING INC INC READ DC OPT OBV ONLY DRUG 60587 [facility] V[facility]EG[facility] SCREENING 6 [facility] OPIOIDS INC INC & OPIATE ANALOGS 5/MORE DRUG TST G0477 [facility] V[facility]EGAS PRESUMP;C 6 [facility] PBL BEING INC INC READ DC OPT OBV ONLY TENS E0720 [employer]rella HereI INC DEVICE 5 TWO LEAD LOCALIZED STIMULATI ON OPIATE G6056 [facility] V[facility]EG[facility] DRUG AND 5 [facility] METABOLIT INC INC ES EACH PROCEDURE TENS E0720 [employer] [place] EMPI INC DEVICE 5 TWO LEAD LOCALIZED STIMULATI ON ORTHOTIC 33341 RUBI VENEGAS MGMT&SAMUEL 5 [facility] [place] UXTR INC INC LXTR&/TRN K EA 15 LUMB L0627 ADVANCED ADVANCED ORTHOSIS 5 TECHNOLOG TECHNOLOG SAGIT IES INC IES INC CNTRL RIGID A&P PANEL PREFAB RADEX 52256 [facility] FANG TRA SPINE 5 [place] LUMBSCRL ORTHOPAED COMPL ICS PLC W/BENDING VIEWS MIN 6 3D 09450 [facility] RENDERING 4 [facility] W/INTERP INC INC & POSTPROCE SS SUPERVISI ON MRI 72020 RU[facility] SPINAL 4 [facility] CANAL INC INC LUMBAR W/O CONTRAST MATERIAL APPLICATI [address] ON 4 [facility] MODALITY CONNIE CONNIE 1/> AREAS HOT/COLD PACKS THERAPEUT [address] IC PX 1/> [facility] E[facility] 15 MIN EXERCISES E-STIM G0283 [facility] ST. 1/> AREAS 4 LILIAM LILIAM OT THAN CONNIE CONNIE WND CARE PART TX PLAN E-STIM G0283 ST. DOUG 1/> AREAS 4 LILIAM ARRON OT THAN CONNIE WND CARE PART TX PLAN THERAPEUT [address] IC PX 1/> [facility] CONNIE EACH 15 MIN EXERCISES APPLICATI [address] ON 4 [facility] MODALITY CONNIE CONNIE 1/> AREAS HOT/COLD PACKS APPLICATI 54327 ST. ARI ON 4 LILIAM DEB MODALITY CONNIE 1/> AREAS HOT/COLD PACKS THERAPEUT [address] IC PX 1/> 4 LILIAM LILIAM AREAS CONNIE CONNIE EACH 15 MIN EXERCISES E-STIM G0283 ST. ST. 1/> AREAS 4 [facility] THAN CONNIE CONNIE WND CARE PART TX PLAN E-STIM G0283 ST. ST. 1/> AREAS 4 [facility] THAN CONNIE CONNIE WND CARE PART TX PLAN THERAPEUT 89715 ST. DOUG IC PX 1/> 4 [facility] CONNIE EACH 15 MIN EXERCISES APPLICATI [address] ON 4 [facility] MODALITY CONNIE CONNIE 1/> AREAS HOT/COLD PACKS RADIOLOGI 74536 [facility] C EXAM 4 CHR CHR CHEST 2 VIEWS FRONTAL&L ATERAL RADEX [address] SPINE 4 [facility] LUMBOSACR CONNIE CONNIE AL 2/[address] 300-399 3 [facility] MG/ML CONNIE CONNIE IODINE CONCENTRA TION PER ML URNLS DIP 68648 STERNEBER STERNEBER 3 G JAIME G JAIME STICK/TAB LET RGNT AUTO W/[place] [address] [facility] ABDOMEN & 3 [facility] PELVIS CONNIE CONNIE W/CONTRAS T MATERIAL RADEX 99901 ROEBKER ROEBKER NASAL 3 JAM JAM BONES COMPLETE MINIMUM 3 VIEWS INCISION 58498 [facility] JAIMEE & 1 VALLEY GERMAINE DRAINAGE INTERNAL ABSCESS MEDI SIMPLE/SI NGLE SUSCEPTIB 04087 COMBINED COMBINED ILITY 1 PHYSICIAN PHYSICIAN STUDY S LA S LA ANTIMICRO BIAL DISK METHOD CUL BACT 77904 COMBINED COMBINED XCPT 1 PHYSICIAN PHYSICIAN URINE S LA S LA BLOOD/[place] [address] [facility] FOLIC 8 [facility] ACID INC INC SERUM BLOOD 69601 [facility] V[facility]EGAS COUNT 8 [facility] COMPLETE INC INC AUTO&AUTO DIFRNTL WBC CYANOCOBA 01191 [facility]AS ELIO 8 [facility] VITAMIN INC INC B-12 INCISION 85155 [facility] MCKEMIE & 8 VALLEY JR, DRAINAGE INTERNAL REJI F ABSCESS MED SIMPLE/SI NGLE Encounters Encounter Start End Date Code Location Performer Type Date [facility] RUBI - 7 7 [facility] OUTPATIEN INC [facility] RUBI - 7 7 [facility] T OFFICE 16605 [facility] 7 7 PHYSICIAN T VISIT S GROUP 15 MINUTES [facility]OSPITAL RUBI - 7 7 [facility] T OFFICE 95967 [facility] 7 7 PHYSICIAN T VISIT S GROUP 15 MINUTES EMERGENCY 42224 [facility] 7 7 EMERGENCY DEPARTMEN T VISIT PHYSICIAN HIGH/URGE S NT SEVERITY OFFICE 40621 [facility] 7 7 PHYSICIAN T VISIT S GROUP 25 MINUTES HOSPITAL RUBI - 7 7 [facility] T OFFICE 84164 [facility] 7 7 PHYSICIAN T VISIT S GROUP 25 MINUTES HOSPITAL RUBI - 7 7 [facility] OUTPAT[facility] INC [facility] RUBI - 7 7 [facility] INC T OFFICE 21006 [facility] 7 7 PHYSICIAN T VISIT S GROUP 15 MINUTES HOSPITAL RUBI - 7 7 [facility] OUTPAT[facility] INC [facility] RUBI - 7 7 [facility] OUT[facility] INC T OFFICE 24499 [facility] 7 7 PHYSICIAN T VISIT 5 S GROUP MINUTES OFFICE 65561 [facility] 7 7 PHYSICIAN T VISIT S GROUP 25 MINUTES HOSPITAL RUBI - 7 7 [facility] OUTPATIEN INC [facility] RUBI - 6 6 [facility]EN [facility] RUBI - 6 6 [facility] RUBI [facility] 6 6 [facility] RUBI - 6 6 [facility] RUBI [facility] 6 6 [facility] RUBI [facility] 6 6 [facility] RUBI - 6 6 [facility] RUBI - 6 6 [facility] RUBI [facility] 6 6 [facility] 00617 [facility] 6 6 EMERGENCY DEPARTMEN T VISIT PHYSICIAN HIGH/URGE S [facility] RUBI - 6 6 [facility] T OFFICE 37718 [facility] 6 6 PHYSICIAN VICENTA T [facility]ISIT S GROUP 10 MINUTES HOSPITAL RUBI - 6 6 [facility] T OFFICE 47241 [facility] 5 5 PHYSICIAN VICENTA T VISIT S GROUP 10 MINUTES OFFICE 20340 [facility] 5 5 PHYSICIAN VICENTA T VISIT S GROUP 10 MINUTES HOSPITAL RUBI - 5 5 [facility] T OFFICE 68781 SAUL HU OUTPATIEN 5 5 MD ALEXEY, T VISIT PSC 10 MINUTES OFFICE 60569 SAUL HU OUTPATISUE 5 5 MD ALEXEY, T VISIT PSC 10 MINUTES OFFICE 67129 [facility] JAIN 5 5 [facility] T VISIT INC 10 MINUTES HOSPITAL RUBI - 5 5 [facility] RUBI - 5 5 [facility] INC T OFFICE 54094 LEENA BLACKBURN ANJ OUTPATIEN 5 5 MD T NEW 30 MINUTES OFFICE 80313 [facility] OUTPATIEN 5 5 [facility] T VISIT INC 10 MINUTES HOSPITAL RUBI - 5 5 [facility] INC T EMERGENCY 88239 [facility] GIUSEPPE 5 5 EMERGENCY ANT DEPARTMEN T VISIT PHYSICIAN HIGH/URGE S NT SEVERITY OFFICE 39927 [facility] 5 5 PHYSICIAN VICENTA T VISIT S GROUP 10 MINUTES OFFICE 85110 [facility] TRA CONSULTAT 5 5 [place] ION ORTHOPAED NEW/ESTAB ICS PLC PATIENT 60 MIN HOSPITAL RUBI - 4 4 [facility] T OFFICE 36167 [facility] 4 4 PHYSICIAN VICENTA T VISIT S GROUP [address] [facility] 880[facility] 4 4 PHYSICIAN VICENTA T VISIT S GROUP 10 MINUTES OFFICE 28144 [facility] 4 4 PHYSICIAN VICENTA T NEW 20 S GROUP MINUTES EMERGENCY 04021 HARMAN HAMMER 4 4 LARA LARA DEPARTMEN T VISIT MODERATE SEVERITY [facility] ST[facility] - 4 4 [facility] OUTPATIEN CONNIE T OFFICE 42236 JOSE JAIN 4 4 [facility] T NEW 45 MINUTES EMERGENCY 55912 ENRIQUE NUNEZ 4 4 MAYTE MAYTE DEPARTMEN T VISIT HIGH/URGE NT SEVERITY OFFICE 44421 STER[facility] STERNEBER OUTPATIEN 3 3 G JAIME G JAIME T VISIT [address] - 3 3 [facility] OUTPATIEN CONNIE T OFFICE 20760 KARL BARAJAS OUTPATIEN 3 3 GERSON GERSON T VISIT 15 MINUTES OFFICE 65260 BONNER VIR BONNER VIR OUTPATIEN 3 3 T VISIT 15 MINUTES EMERGENCY 15123 HAROLDO HAROLDO 3 3 MAUREEN REDDY DEPARTMEN T VISIT MODERATE SEVERITY EMERGENCY 34253 BARB 2 2 [facility]IS[facility] HIGH/URGE NT SEVERITY EMERGENCY 30294 TIARRA MAZARIEGOS 1 1 EMERGENCY [facility] DEPARTMEN SERVICES T VISIT MODERATE SEVERITY EMERGENCY 74090 [facility] 1 1 [facility] DEPARTMEN INC T VISIT LOW/MODER SEVERITY HOSPITAL RUBI - 1 1 [facility] OUTPATIEN INC T OFFICE 95689 [facility] OUT[facility] 1 1 RUTLEDGE T VISIT INTERNAL 15 MED MINUTES OFFICE 62273 [facility] JAIMEE OUTPATIEN 1 1 [facility] T VISIT INTERNAL 15 MEDI MINUTES EMERGENCY 78697 TIARRA FIGUEREDO 1 1 EMERGENCY DEPARTMEN SERVICES T VISIT HIGH/URGE NT SEVERITY HOSPITAL RUBI - 1 1 [facility] OUTPATIEN INC T EMERGENCY 65421 RU[facility] 1 1 [facility] DEPARTMEN INC T VISIT LOW/MODER SEVERITY EMERGENCY 67132 TIARRA MAZARIEGOS 1 1 EMERGENCY [facility] DEPARTMEN SERVICES T VISIT HIGH/URGE NT SEVERITY HOSPITAL RUBI - 1 1 [facility] OUTPATIEN INC T EMERGENCY 02269 [facility] 1 1 [facility] DEPARTMEN INC T VISIT LOW/MODER SEVERITY OFFICE 95612 [facility] BESSON, OUTPATIEN 9 9 REJI Fong VISIT INTERNAL 25 MED MINUTES OFFICE 41318 [facility] MCKEMIE OUTPATIEN 8 8 Ajit MENDOZA JR VISIT INTERNAL [facility] 15 MED MINUTES HOSPITAL RUBI - 8 8 [facility] T OFFICE 23261 [facility] CISCO OUTJOSÉ MIGUELEN 8 8 REJI Fong VISIT INTERNAL 10 MED MINUTES OFFICE 55174 [facility] MCKEMIE OUTPATIEN 8 8 Ajit MENDOZA JR VISIT 5 INTERNAL [facility] MINUTES [facility]
--- OUTSIDE RECORDS SUMMARY | 2017-03-18 23:10 | External Medical Summary Rpt ---
Author Author , HASMUKH Organization HASMUKH Address Unknown Phone [email or web address] [facility] Care Team Providers Care Rough Rounder Name Role Phone [employer] Unavailable Unavailable [...] [facility], Unavailable Unavailable [facility] FANG TRA, FANG TRA Unavailable Unavailable GHANSHYAM CHR, GHANSHYAM Unavailable Unavailable [facility]R GHANSHYAM CHR, GHANSHYAM Unavailable Unavailable [facility] Unavailable Unavailable [facility], [facility] Un[facility] Unavailable [facility], [facility] Unavailable Unavailable [facility], [facility] Unavailable Unavailable SERVICES, [facility] REJI GONZALES JR Unavailable Unavailable [...] Unavailable Unavailable [facility], Unavailable Unavailable [facility] STERNEBERG JAIME, Unavailable Unavailable STERNEBERG JAIME [facility] Unavailable Unavailable #[id number], [facility]584 [facility] Unavailable Unavailable #591, [facility] # Unavailable Unavailable [id number], [facility] # [id number] Purpose Continuity of Care Document - 11-03-2007 through 2016 Problems Code Diagnosis DOS Provider Status R300 DYSURIA 02-13-2017 [facility] [id number] OTHER LONG 02-13-[address] [facility] [address] CURRENT INC DRUG THERAPY K047 PERIAPICAL 12-19-2016 [facility] ABSCESS PHYSICIANS WITHOUT GROUP SINUS 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 K029 DENTAL 11-27-2016 [facility]ER[facility] UNSPECIFIED PHYSICIANS K0889 OTHER 11-27-2016 [facility] SPECIFIED EMERGENCY DISORDERS PHYSICIANS OF TEETH SUPPORT STRCT Z1231 ENCOUNTER 11-20-2016 [facility] SCREENING PHYSICIANS MAMMO MALIG GROUP NEOPLASM BREAST M1288 OTHER 10-24-2016 [facility] SPECIFIC PHYSICIANS ARTHROPATHI GROUP ES NEC OTHER SPEC SITE M9983 OTHER 10-24-2016 [facility] BIOMECHANIC PHYSICIANS AL LESIONS GROUP OF LUMBAR REGION M4316 SPONDYLOLIS 10-10-2016 [facility] REGION M5117 INTERVERTEB 10-10-2016 [place] [facility] D/O IMAGING ASS W/RADICULOP ATHY LS RGN M545 LOW BACK 10-10-2016 [facility] M5126 OTH 09-26-2016 [facility] INTERVERTEB PHYSICIANS RAL DISC GROUP DISPLACEMEN T LUMBAR RGN M5127 OTH 01-18-2016 [facility] RAL DISC INC DISPLACEMEN T LS REGION R1031 RIGHT LOWER 09-17-2015 [facility] PAIN PHYSICIANS R197 DIARRHEA 09-17-2015 [facility] UNSPECIFIED EMERGENCY PHYSICIANS 80209 DEGEN 03-31-2015 SAUL BLACKBURN LUMBAR/LUMB , PSC OSACRAL INTERVERTEB RAL DISC 7244 THORACIC/NEAL 03-31-2015 TASHA MURILLO MD, PSC NEURITIS/RA DICULITIS UNSPEC V5789 OTHER 12-09-2014 [facility] SPECIFIED [facility] ION PROCEDURE OTHER 4610 ACUTE 09-21-2014 [facility] MAX[facility]ARY [facility] SINUSITIS PHYSICIANS 17577 DISPLCMT 09-10-2014 [facility] 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 7384 ACQUIRED 09-09-2014 [facility] [place] [facility] 7213 LUMBOSACRAL 08-03-2014 [facility] SPONDYLOSIS IMAGING ASS WITHOUT MYELOPATHY 7245 UNSPECIFIED 08-03-2014 [facility] BACKACHE [facility] V571 OTHER 07-12-2014 [facility] CONNIE 08314 CHEST PAIN 03-04-2014 GHANSHYAM CHR UNSPECIFIED 7242 LUMBAGO 12-08-2013 JOSE JOSÉ MIGUEL 6212 HYPERTROPHY 12-02-2013 GARCIA PACHECO OF UTERUS 6253 DYSMENORRHE 12-02-2013 GARC[facility] PAC[facility]CO A 6259 UNSPEC 12-02-2013 G[facility] SYMPTOM ASSOC W/FEMALE GENITAL ORGANS 62704 ABDOMINAL 12-02-2013 GARCIA PACHECO PAIN RIGHT LOWER QUADRANT 6238 OTHER 11-30-2013 ENRIQUE HU SPECIFIED NONINFLAMMA TORY DISORDER VAGINA 6829 CELLULITIS 12-08-2012 KARL GERSON AND ABSCESS OF UNSPECIFIED SITE 25128 GENERALIZED 08-21-2012 [facility] ANXIETY DISORDER V5869 LONG-TERM 08-21-2012 [facility] VIR (CURRENT) USE OF OTHER MEDICATIONS 7840 HEADACHE 08-20-2012 ROEBK[facility] JAM 920 CONTUSION 08-20-2012 HAROLDO MAUREEN OF FACE SCALP AND NECK EXCEPT EYE 9599 INJURY 08-20-2012 ROEBKER JAM OTHER AND UNSPECIFIED UNSPECIFIED SITE 6235 LEUKORRHEA 04-19-2012 [facility] SPECIFIED MED CTR INFECTIVE 5283 CELLULITIS 03-17-2011 [facility] AND ABSCESS [facility] OF ORAL INTERNAL SOFT MED TISSUES 6826 CELLULITIS 03-17-2011 [facility] AND ABSCESS EMERGENCY OF LEG SERVICES EXCEPT FOOT 1109 DERMATOPHYT 01-29-2011 [facility] OSIS OF [facility] UNSPECIFIED INTERNAL SITE MEDI 78418 ABDOMINAL 01-06-2011 [facility] PAIN, EMERGENCY GENERALIZED SERVICES 7820 DISTURBANCE 08-28-2010 [facility] OF [facility] 85534 OTHER DRUG 08-28-2010 [facility] 90901 UNSPECIFIED 11-27-2008 [facility] INFECTIVE [facility] OTITIS INTERNAL EXTERNA MED 3814 NONSUPPRATV 11-27-2008 [facility] OTITIS [facility] MEDIA NOT INTERNAL SPEC MED ACUT/CHRON 485 BRONCHOPNEU 11-27-2008 [facility] [place] ORGANISM INTERNAL UNSPECIFIED MED 7862 COUGH 11-27-2008 [facility] INTERNAL MED 66167 OTHER 11-20-2007 [facility] ANXIETY VAL[place] STATES INTERNAL MED 69187 RESTLESS 11-20-2007 [facility] LEGS [place] SYNDROME INTERNAL MED 88904 UNSPECIFIED 11-14-2007 [facility] VAGINITIS [place] AND INTERNAL [...] 07 07 14 7 00 CL Ac TN 57 -0 -2 .0 00 IN ti [...] AM 60 3- 3- 00 MA 60 AZ ve ET 27 20 20 RT 6 [...] 00 7. 7 CL 19 BE Ac TN 06 -1 -0 50 IN 20 SS [...] ti 70 6- 3- 00 IC 92 AZ ve 09 20 20 E 10 09 [...] EP 15 7- 2- 00 IC 92 AZ ve AM 61 20 20 E 5 [...] EP 15 7- 1- 00 IC 92 AZ ve AM 61 20 20 E 5 [...] 7- 0- 00 IC 91 ER ve TN 00 20 20 ED 10 08 08 PH NA NI 3 AR NC SO MA Y LO CY C NE 4 MG DO SE PK DI 00 11 11 00 60 30 CL 18 MC Ac AZ 59 -0 -2 .0 IN 13 KE ti EP 15 7- 0- 00 IC 92 AZ ve AM 61 20 20 E 5 [...] EP 80 0- 7- 00 MA 37 AZ ve AM 34 20 20 RT 0 [...] Procedure DOS Code Location Performer Comment SUSCEPTIB 53702 [facility] LTY STDY 7 [facility] ANTIMICRB INC INC IAL MICRO/AGA R DILUTJ DRUG TEST 83437 [facility] PRSMV 7 [facility] QUAL DIR INC INC OPTICAL OBS PER DAY CULTURE 93525 [facility] BACTERIAL 7 [facility] INC INC QUANTTATI VE COLONY COUNT URINE CULTURE 31770 [facility] BCT 7 [facility] ISOL&PRSM INC INC PTV ID ISOLATE EA URINE DRUG TEST 39230 [facility] PRSMV 7 [facility] QUAL DIR INC INC OPTICAL OBS PER DAY DRUG TEST G0481 [facility] DEFINITV [address] ID INC INC METH P DAY 8-14 DRUG CL DRUG TEST G0481 [facility] DEFINITV [address] ID INC INC METH P DAY 8-14 DRUG CL DRUG TEST 34270 [facility] PRSMV 7 [facility] QUAL DIR INC INC OPTICAL OBS PER DAY INJECTION J1885 [facility] YAIR 7 PHYSICIAN KETOROLAC S GROUP TROMETHAM INE PER 15 MG INJECTION J0696 [facility] YAIR 7 PHYSICIAN CEFTRIAXO S GROUP NE SODIUM PER 250 MG THERAPEUT 33532 [facility] IC 7 PHYSICIAN PROPHYLAC S GROUP TIC/DX INJECTION SUBQ/IM INJECTION J1100 [facility] YAIR 7 PHYSICIAN DEXAMETHO S GROUP SONE SODIUM PHOSPHATE 1 MG DRUG TEST 24807 [facility] PRSMV 7 [facility] QUAL DIR INC INC OPTICAL OBS PER DAY DRUG TEST 01612 [facility] PRSMV 7 [facility] QUAL DIR INC INC OPTICAL OBS PER DAY DRUG 16150 [facility] SCREENING 7 [facility] OPIOIDS INC INC & OPIATE ANALOGS 5/MORE MRI 09362 [place] [facility] 7 MEDICAL CANAL IMAGING LUMBAR ASS W/O CONTRAST MATERIAL 3D 77947 [place] [facility]ENDERING 7 MEDICAL W/INTERP IMAGING & ASS POSTPROCE SS SUPERVISI ON DRUG 00278 [facility] SCREENING 7 [facility] OPIOIDS INC INC & OPIATE ANALOGS 5/MORE DRUG TEST 45838 [facility] PRSMV 7 [facility] QUAL DIR INC INC OPTICAL OBS PER DAY DRUG TEST 49340 [facility] PRSMV 7 [facility] QUAL DIR INC INC OPTICAL OBS PER DAY DRUG TEST G0481 [facility] DEFINITV [address] ID INC INC METH P DAY 8-14 DRUG CL DRUG TEST 57063 [facility] PRSMV 7 [facility] MEM [...] INC READ DC OPT OBV ONLY DRUG 09579 [facility] SCREENING 6 [facility] INC INC BENZODIAZ EPINES 1-12 DRUG TST G0477 [facility] PRESUMP;C 6 [facility] PBL BEING INC INC READ DC OPT OBV ONLY DRUG 05521 [facility] SCREENING 6 [facility] OPIOIDS INC INC & OPIATE ANALOGS 5/MORE DRUG TST G0477 [facility] PRESUMP;C 6 [facility] PBL BEING INC INC READ DC OPT OBV ONLY TENS E0720 [employer] Limited[employer] INC DEVICE 5 TWO LEAD LOCALIZED STIMULATI ON OPIATE G6056 [facility] DRUG AND 5 [facility] METABOLIT INC INC ES EACH PROCEDURE TENS E0720 [employer]MP[employer] INC DEVICE 5 TWO LEAD LOCALIZED STIMULATI ON ORTHOTIC 88115 [facility] MGMT&SAMUEL 5 [facility] [place] UXTR INC INC LXTR&/TRN K EA 15 LUMB L0627 [facility] 5 TECHNOLOG TECHNOLOG SAGIT IES INC IES INC CNTRL RIGID A&P PANEL PREFAB RADEX 54199 [facility] SPINE 5 [place] LUMBSCRL ORTHOPAED COMPL ICS PLC W/BENDING VIEWS MIN 6 3D 95087 [facility] RENDERING 4 [facility] W/INTERP INC INC & POSTPROCE SS SUPERVISI ON MRI 85342 [facility] SPINAL 4 [facility] CANAL INC INC LUMBAR W/O CONTRAST MATERIAL APPLICATI [address] ON 4 [facility] MODALITY CONNIE CONNIE 1/> AREAS HOT/COLD PACKS THERAPEUT [address] IC PX 1/> 4 [facility] CON[facility] EACH 15 MIN EXERCISES E-STIM G0283 ST. ST. 1/> AREAS 4 [facility] LILIAM OT THAN CONNIE CONNIE WND CARE PART TX PLAN E-STIM G0283 ST. DOUG 1/> AREAS 4 [facility] ARRON OT THAN CONNIE WND CARE PART TX PLAN THERAPEUT [address] IC PX 1/> 4 [facility] CON[facility] CON[facility] EACH 15 MIN EXERCISES APPLICATI [address] ON 4 [facility] MODALITY CONNIE CONNIE 1/> AREAS HOT/COLD PACKS APPLICATI 43216 ST. ARI ON 4 [facility] DEB MODALITY CONNIE 1/> AREAS HOT/COLD PACKS THERAPEUT [address] IC PX 1/> 4 [facility] AREAS CONNIE CONNIE EACH 15 MIN EXERCISES E-STIM G0283 ST. ST. 1/> AREAS 4 [facility] THAN CONNIE CONNIE WND CARE PART TX PLAN E-STIM G0283 ST. ST. 1/> AREAS 4 [facility] THAN CONNIE CONNIE WND CARE PART TX PLAN THERAPEUT 69061 ST. DOUG IC PX 1/> 4 [facility] CONNIE EACH 15 MIN EXERCISES APPLICATI [address] ON 4 [facility] MODALITY CONNIE CONNIE 1/> AREAS HOT/COLD PACKS RADIOLOGI 73058 [facility] C EXAM 4 CHR CHR CHEST 2 VIEWS FRONTAL&L ATERAL RADEX [address] SPINE 4 [facility] LUMBOSACR CONNIE CONNIE AL 2/[address] 300-399 3 [facility] MG/ML CONNIE CONNIE IODINE CONCENTRA TION PER ML URNLS DIP 31503 STERNEBER STERNEBER 3 G JAIME G JAIME STICK/TAB LET RGNT AUTO W/[place] [address] [facility] ABDOMEN & 3 [facility] PELVIS CONNIE CONNIE W/CONTRAS T MATERIAL RADEX 07558 RO[facility] ROEBKER NASAL 3 JAM JAM BONES COMPLETE MINIMUM 3 VIEWS INCISION 42823 [facility] JAIMEE & 1 VALLEY GERMAINE DRAINAGE INTERNAL ABSCESS MEDI SIMPLE/SI NGLE SUSCEPTIB 64109 COMBINED COMBINED ILITY 1 PHYSICIAN PHYSICIAN STUDY S LA S LA ANTIMICRO BIAL DISK METHOD CUL BACT 90138 COMBINED COMBINED XCPT 1 PHYSICIAN PHYSICIAN URINE S LA S LA BLOOD/[place] [address] [facility] FOLIC 8 [facility] ACID INC INC SERUM BLOOD 17353 [facility] COUNT 8 [facility] COMPLETE INC INC AUTO&AUTO DIFRNTL WBC CYANOCOBA 46882 [facility] ELIO 8 [facility] VITAMIN INC INC B-12 INCISION 80160 [facility] MCKEMIE & 8 VALLEY JR, DRAINAGE INTERNAL REJI F ABSCESS MED SIMPLE/SI NGLE Encounters Encounter Start End Date Code Location Performer Type Date [facility] RU[facility] - 7 7 [facility] OUTPATIEN INC [facility] RUBI - 7 7 [facility] OUTPATIEN INC T OFFICE 43448 [facility] YAIR OUTPATIEN 7 7 PHYSICIAN T VISIT S GROUP 15 MINUTES HOSPITAL [facility] - 7 7 [facility] INC T OFFICE 13936 [facility] Y[facility] OUTPATIEN 7 7 PHYSICIAN T VISIT S GROUP 15 MINUTES EMERGENCY 09013 [facility] OLIVEIRA 7 7 EMERGENCY DEPARTMEN T VISIT PHYSICIAN HIGH/URGE S NT SEVERITY OFFICE 24795 [facility] Y[facility]IR OUTPATIEN 7 7 PHYSICIAN T VISIT S GROUP 25 MINUTES HOSPITAL RU[facility] - 7 7 [facility] OUTPATIEN INC T OFFICE 44297 [facility] Y[facility]IR OUTPATIEN 7 7 PHYSICIAN T VISIT S GROUP 25 MINUTES HOSPITAL RUBI - 7 7 [facility] OUTPATIEN INC [facility] RUBI - 7 7 [facility] INC T OFFICE 90761 [facility] YAIR OUTPATIEN 7 7 PHYSICIAN T VISIT S GROUP 15 MINUTES HOSPITAL RUBI - 7 7 [facility] OUTPATIEN INC [facility] RUBI - 7 7 [facility] OUTPATIEN INC T OFFICE 44138 [facility] OUTPATIEN 7 7 PHYSICIAN T VISIT 5 S GROUP MINUTES OFFICE 75808 [facility] Y[facility]IR OUTPATIEN 7 7 PHYSICIAN T VISIT S GROUP 25 MINUTES HOSPITAL RUBI - 7 7 [facility] OUTPATIEN INC [facility] RUBI - 6 6 [facility] OUTPATIEN [facility] RUBI - 6 6 [facility] OUTPATIEN [facility] RUBI - 6 6 [facility]PATIEN [facility] RUBI - 6 6 [facility] RU[facility] - 6 6 [facility] RUBI - 6 6 [facility] RUBI - 6 6 [facility] RUBI - 6 6 [facility] RUBI - 6 6 [facility] OUTPATIEN [facility] EMERGENCY 70078 [facility] 6 6 EMERGENCY DEPARTMEN T VISIT PHYSICIAN HIGH/URGE S [facility] RUBI - 6 6 [facility] OUTPATIEN [facility] T OFFICE 08593 [facility] 6 6 PHYSICIAN VICENTA T VISIT S GROUP 10 MINUTES HOSPITAL RUBI - 6 6 [facility]EN [facility] T OFFICE 35932 [facility] 5 5 PHYSICIAN VICENTA T VISIT S GROUP 10 MINUTES OFFICE 78620 [facility] 5 5 PHYSICIAN VICENTA T VISIT S GROUP 10 MINUTES HOSPITAL RU[facility] - 5 5 [facility]EN [facility] T OFFICE 99487 SA[facility] HU OUTPATIEN 5 5 MD ALEXEY, T VISIT PSC 10 MINUTES OFFICE 09873 [facility] HU OUTPATISUE 5 5 MD ALEXEY, T VISIT PSC 10 MINUTES OFFICE 80589 [facility] JAIN 5 5 [facility] T VISIT INC 10 MINUTES HOSPITAL [facility] - 5 5 [facility] OUTPATIEN INC [facility] - 5 5 [facility] OUTPATIEN INC T OFFICE 89263 LEENA BLACKBURN ANJ OUTPATIEN 5 5 MD T NEW 30 MINUTES OFFICE 81759 [facility] OUTPATIEN 5 5 [facility] T VISIT INC 10 MINUTES HOSPITAL RUBI - 5 5 [facility]PAT[facility] INC T EMERGENCY 73564 [facility] GIUSEPPE 5 5 EMERGENCY ANT DEPARTMEN T VISIT PHYSICIAN HIGH/URGE S NT SEVERITY OFFICE 42729 [facility] OUTPATIEN 5 5 PHYSICIAN VICENTA T VISIT S GROUP 10 MINUTES OFFICE 51387 [facility] 5 5 [place] ION ORTHOPAED NEW/ESTAB ICS PLC PATIENT 60 MIN HOSPITAL RUBI - 4 4 [facility] OUTPATIEN [facility] T OFFICE 64886 [facility] Y[facility] OUTPATIEN 4 4 PHYSICIAN VICENTA T VISIT S GROUP [address] [facility] 4 [facility] 91443 [facility] Y[facility] OUTPATIEN 4 4 PHYSICIAN VICENTA T VISIT S GROUP 10 MINUTES OFFICE 32789 [facility] OUTPATIEN 4 4 PHYSICIAN VICENTA T NEW 20 S GROUP MINUTES EMERGENCY 60444 HARMAN HAMMER 4 4 LARA LARA DEPARTMEN T VISIT MODERATE SEVERITY [facility] ST[facility] - 4 4 [facility] OUTPATIEN CONNIE T OFFICE 94174 JOSE JAIN 4 4 [facility] T NEW 45 MINUTES EMERGENCY 03438 ENRIQUE NUNEZ 4 4 MAYTE MAYTE DEPARTMEN T VISIT HIGH/URGE NT SEVERITY OFFICE 17930 ST[facility] STERNEBER OUTPATIEN 3 3 G JAIME G JAIME T VISIT [address] - 3 3 [facility] OUTPATIEN CONNIE T OFFICE 82126 KARL BARAJAS OUTPATIEN 3 3 GERSON GERSON T VISIT 15 MINUTES OFFICE 31814 [facility] VIR BONNER VIR OUTPATIEN 3 3 T VISIT 15 MINUTES EMERGENCY 56038 HAROLDO HAROLDO 3 3 MAUREEN REDDY DEPARTMEN T VISIT MODERATE SEVERITY EMERGENCY 79546 [facility]B 2 2 [facility]IS[facility] HIGH/URGE NT SEVERITY EMERGENCY 65366 [facility] MAZARIEGOS 1 1 EMERGENCY [facility] DEPARTMEN SERVICES T VISIT MODERATE SEVERITY EMERGENCY 39096 [facility] 1 1 [facility] DEPARTMEN INC T VISIT LOW/MODER SEVERITY HOSPITAL [facility] - 1 1 [facility] OUTPATIEN INC T OFFICE 97751 [facility] OUT[facility] 1 1 PANA T VISIT INTERNAL 15 MED MINUTES OFFICE 48706 [facility] JAIMEE OUTPATIEN 1 1 [facility] T VISIT INTERNAL 15 MEDI MINUTES EMERGENCY 82048 TI[facility] FIGUEREDO 1 1 EMERGENCY DEPARTMEN SERVICES T VISIT HIGH/URGE NT SEVERITY HOSPITAL [facility] - 1 1 [facility] OUTPATIEN INC T EMERGENCY 66800 [facility] 1 1 [facility] DEPARTMEN INC T VISIT LOW/MODER SEVERITY EMERGENCY 09189 TIARRA MAZARIEGOS 1 1 EMERGENCY [facility] DEPARTMEN SERVICES T VISIT HIGH/URGE NT SEVERITY HOSPITAL [facility] - 1 1 [facility] OUTPATIEN INC T EMERGENCY 08193 [facility] 1 1 [facility] DEPARTMEN INC T VISIT LOW/MODER SEVERITY OFFICE 05012 [facility] BESSON, OUTPATIEN 9 9 REJI Fong VISIT INTERNAL 25 MED MINUTES OFFICE 21163 [facility] MCKEM[facility] OUTPATIEN 8 8 Ajit MENDOZA JR VISIT INTERNAL [facility] 15 MED MINUTES [facility]OSPITAL RU[facility] - 8 8 [facility] T OFFICE 43970 [facility] CISCO OUTJOSÉ MIGUELEN 8 8 REJI Fong VISIT INTERNAL 10 MED MINUTES OFFICE 22099 [facility] MCKEMIE OUTPATIEN 8 8 Ajit MENDOZA JR VISIT 5 INTERNAL [facility] MINUTES MED
--- OUTSIDE RECORDS SUMMARY | 2017-03-18 23:14 | External Medical Summary Rpt ---
Author Author , HASMUKH Hunter HASMUKH Address Unknown Phone [email or web address] Care Team Providers Care Pit Crew Support Worker Name Role Phone [employer] Unavailable Unavailable INC, [employer] DOUG ARRON, DOUG Unavailable Unavailable ARRON SAUL BLACKBURN MD, PSC, Unavailable Unavailable SAUL BLACKBURN MD, PSC BESSON, VARGAS A, Unavailable Unavailable BESSON VARGAS A OATES, OATES Unavailable Unavailable BRACKEN MAYTE, BRACKEN Unavailable Unavailable MAYTE BRACKEN MAYTE, BRACKEN Unavailable Unavailable MAYTE HAROLDO MAUREEN, HAROLDO Unavailable Unavailable MAUREEN HAROLDO MAUREEN, HAROLDO Unavailable Unavailable MAUREEN BUX ANJ, BUX ANJ Unavailable Unavailable [facility] GARCIA PACHECO, GARCIA Unavailable Unavailable [facility] GARCAI PACHECO, GARCIA Unavailable Unavailable [facility] Un[facility] Un[facility] Un[facility] [place], [facility] Unavailable Unavailable PHYSICIANS, [facility] ERNIE COLETTE, Unavailable Unavailable ERNIE COLETTE HARMAN LARA, HARMAN Unavailable Unavailable LARA DUFF MAYTE, DUFF MAYTE Unavailable Unavailable [facility], [facility] Unavailable Unavailable OJSE JOSÉ MIGUEL, JOSE Unavailable Unavailable JOSÉ MIGUEL JOSE JOSÉ MIGUEL, JOSE Unavailable Unavailable JOSÉ MIGUEL [facility] GERMA[facility], Unavailable Unavailable [facility] GIUSEPPE ANT, GIUSEPPE Unavailable Unavailable ANT YAIR, YAIR Unavailable Unavailable YAIR VICENTA, YAIR Unavailable Unavailable VICENTA PROCTOR BEA, PROCTOR BEA Unavailable [facility]available [facility] Unavailable Unavailable INC, [facility], Unavailable Unavailable [facility] FANG TRA, FANG TRA Unavailable Unavailable GHANSHYAM CHR, GHANSHYAM Unavailable Unavailable CHR GHANSHYAM CHR, GHANSHYAM Unavailable Unavailable CHR [facility] Unavailable Unavailable [facility], [facility] Unavailable Un[facility], [facility] Unavailable Unavailable SERVICES, [facility] REJI GONZALES JR Unavailable Kendra Beauchamp, REJI GONZALES JR, KARL Unavailable Unavailable GERSON KARL GERSON, KARL Unavailable Unavailable GERSON BONNER VIR, BONNER VIR Unavailable Unavailable BONNER VIR, [facility] VIR Unavailable Unavailable ROEBKER JAM, ROEBKER Unavailable Unavailable JAM ROEBKER JAM, ROEBKER Unavailable Unavailable JAM OLIVEIRA, OLIVEIRA Unavailable Unavailable ROLON GAR, ROLON Unavailable Unavailable GAR BARB LEOBARDO, BARB Unavailable Unavailable LEOBARDO ROJO, RAJESH ALIA Unavailable Unavailable ARI ANASTACIA, ARI Unavailable Unavailable ANASTACIA [facility], Unavailable Unavailable [facility], Unavailable Unavailable [facility] STERNEBERG JAIME, Unavailable Unavailable STERNEBERG JAIME [facility] Unavailable Unavailable #[id number], [facility] Unavailable Unavailable #591, [facility] # Unavailable Unavailable [id number], [facility] # [id number] Purpose Continuity of Care Document - 11-03-2007 through 2016 Problems Code Diagnosis DOS Provider Status R300 DYSURIA 02-13-2017 [facility] Y08008 OTHER LONG 02-13-2017 [facility] CURRENT INC DRUG THERAPY K047 PERIAPICAL 12-19-2016 [facility] ABSCESS PHYSICIANS WITHOUT GROUP SINUS 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 K029 DENTAL 11-27-2016 [facility] UNSPECIFIED PHYSICIANS K0889 OTHER 11-27-2016 [facility] SPECIFIED [facility] DISORDERS PHYSICIANS OF TEETH SUPPORT STRCT Z1231 ENCOUNTER 11-20-2016 [facility] SCREENING PHYSICIANS MAMMO MALIG GROUP NEOPLASM BREAST M1288 OTHER 10-24-2016 [facility] SPECIFIC PHYSICIANS ARTHROPATHI GROUP ES NEC OTHER SPEC SITE M9983 OTHER 10-24-2016 [facility] BIOMECHANIC PHYSICIANS AL LESIONS GROUP OF LUMBAR REGION M4316 SPONDYLOLIS 10-10-2016 [facility] REGION M5117 INTERVERTEB 10-10-2016 [facility] R[facility] DISC MEDICAL D/O IMAGING ASS W/RADICULOP ATHY LS RGN M545 LOW BACK 10-10-2016 [facility] M5126 OTH 09-26-2016 [facility] INTERVERTEB PHYSICIANS RAL DISC GROUP DISPLACEMEN T LUMBAR RGN M5127 OT 01-18-2016 [facility] RAL DISC INC DISPLACEMEN T LS REGION R1031 RIGHT LOWER 09-17-2015 [facility] PAIN PHYSICIANS R197 DIARRHEA 09-17-2015 [facility] UNSPECIFIED EMERGENCY PHYSICIANS 72935 DEGEN 03-31-2015 SAUL BLACKBURN, LUMBAR/LUMB , PSC OSACRAL INTERVERTEB RAL DISC 7244 THORACIC/NEAL 03-31-2015 TASHA MURILLO MD, PSC NEURITIS/RA DICULITIS UNSPEC V5789 OTHER 12-09-2014 [facility] ION PROCEDURE OTHER 4610 ACUTE 09-21-2014 [facility] MAXILLARY EMERGENCY SINUSITIS PHYSICIANS 35977 DISPLCMT 09-10-2014 [facility] 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 7384 ACQUIRED 09-09-2014 [facility] 7213 LUMBOSACRAL 08-03-2014 [facility] SPONDYLOSIS IMAGING ASS WITHOUT MYELOPATHY 7245 UNSPECIFIED 08-03-2014 [facility] V571 OTHER 07-12-2014 [facility] CONNIE 39973 CHEST PAIN 03-04-2014 GHANSHYAM [facility] UNSPECIFIED 7242 LUMBAGO 12-08-2013 JOSE JOSÉ MIGUEL 6212 HYPERTROPHY 12-02-2013 G[facility] OF UTERUS 6253 DYSMENORRHE 12-02-2013 GARCIA PAC[facility] A 6259 UNSPEC 12-02-2013 GARCIA [facility] SYMPTOM ASSOC W/FEMALE GENITAL ORGANS 78830 ABDOMINAL 12-02-2013 GARCIA [facility] PAIN RIGHT LOWER QUADRANT 6238 OTHER 11-30-2013 ENRIQUE HU SPECIFIED NONINFLAMMA TORY DISORDER VAGINA 6829 CELLULITIS 12-08-2012 KARL GERSON AND ABSCESS OF UNSPECIFIED SITE 33176 GENERALIZED 08-21-2012 [facility] V[facility] ANXIETY DISORDER V5869 LONG-TERM 08-21-2012 [facility] VIR (CURRENT) USE OF OTHER MEDICATIONS 7840 HEADACHE 08-20-2012 ROEBKER JAM 920 CONTUSION 08-20-2012 HAROLDO MAUREEN OF FACE SCALP AND NECK EXCEPT EYE 9599 INJURY 08-20-2012 ROEB[facility]ER JAM OTHER AND UNSPECIFIED UNSPECIFIED SITE 6235 LEUKORRHEA 04-19-2012 [facility] SPECIFIED MED CTR INFECTIVE 5283 CELLULITIS 03-17-2011 [facility] AND ABSCESS [facility] OF ORAL INTERNAL SOFT MED TISSUES 6826 CELLULITIS 03-17-2011 [facility] ABSCESS EMERGENCY OF LEG SERVICES EXCEPT FOOT 1109 DERMATOPHYT 01-29-2011 [facility] OSIS OF [place] UNSPECIFIED INTERNAL SITE MEDI 41385 ABDOMINAL 01-06-2011 [facility], EMERGENCY GENERALIZED SERVICES 7820 DISTURBANCE 08-28-2010 [facility] SK[facility] 22410 OTHER DRUG 08-28-2010 [facility] 47917 UNSPECIFIED 11-27-2008 [facility] INFECTIVE [place] OTITIS INTERNAL EXTERNA MED 3814 NONSUPPRATV 11-27-2008 [facility] OTITIS VALLEY MEDIA NOT INTERNAL SPEC MED ACUT/CHRON 485 BRONCHOPNEU 11-27-2008 [facility] [place] ORGANISM INTERNAL UNSPECIFIED MED 7862 COUGH 11-27-2008 [facility] 54239 OTHER 11-20-2007 [facility] ANXIETY [place] STATES INTERNAL MED 77949 RESTLESS 11-20-2007 [facility] LEGS [place] SYNDROME INTERNAL MED 09444 UNSPECIFIED 11-14-2007 [facility] VAGINITIS [place] AND INTERNAL VULVOVAGINI MED TIS 7062 SEBACEOUS 11-14-2007 [facility] CYST [facility] INTERNAL MED Medications Na ND Rx Da Fi Fi Am Da Di Ph RX Ph St me C No te ll ll ou ys ag ar # ys at rm s nt no ma ic us Or Da si cy ia de te s n re d GA 68 06 07 90 30 00 CL Ac BA 38 -3 -2 .0 00 IN ti PE 20 0- 8- 00 00 IC ve NT 20 20 20 42 IN 50 17 17 01 PH 5 20 AR 80 MA 0 CY MG TA BL ET CI 16 07 07 [address] 57 -0 -2 .0 00 IN ti OF 10 5- 8- 00 00 IC ve LO 41 20 20 43 XA 21 17 17 59 PH CI 0 03 AR N MA HC CY L 50 0 MG TA B PH 69 07 07 10 5 00 CL Ac EN 36 -0 -2 .0 00 IN ti AZ 70 5- 8- 00 00 IC ve OP 16 20 20 43 YR 30 17 17 59 PH ID 4 04 AR IN MA E CY 20 0 MG TA B FL 68 07 07 5. 5 00 CL Ac UC 46 -0 -2 00 00 IN ti ON 20 5- 8- 0 00 IC ve AZ 10 20 20 43 OL 34 17 17 59 PH E 0 05 AR 15 MA 0 CY MG TA BL ET TR 00 07 07 30 30 00 CL Ac AZ 60 -0 -2 .0 00 IN ti OD 36 5- 8- 00 00 IC ve ON 16 20 20 43 E 02 17 17 59 PH 50 1 06 AR MA MG CY TA BL ET OX 13 07 07 90 30 00 CL Ac YC 10 -0 -2 .0 00 IN ti OD 70 5- 8- 00 00 IC ve ON 11 29 20 43 E- 40 17 17 59 PH AC 1 11 AR ET MA AM CY IN OP HE N 5- 32 5 GA 68 06 06 90 30 00 [...] 7- 0- 00 00 IC ve ON 11 29 20 43 E- 40 17 17 33 PH AC 1 32 AR ET MA AM CY IN OP HE N 5- 32 5 OX 13 05 06 90 30 00 CL Ac YC 10 -1 -0 .0 00 IN ti OD 70 0- 2- 00 00 IC ve ON 11 30 19 43 E- 40 17 17 07 PH [...] CY ER 15 0 MG CA P FL 68 04 05 3. 9 00 CL Ac UC 46 -2 -1 00 00 IN ti ON 20 4- 9- 0 00 IC ve AZ 10 20 20 42 OL 34 17 17 89 PH E 0 74 AR 15 MA 0 CY MG TA BL ET IB 53 04 05 16 8 00 HO Ac UP 74 -2 -1 .0 00 ME ti RO 60 1- 9- 00 06 TO ve FE 46 20 20 08 WN N 50 17 17 55 60 5 31 PH 0 AR MG MA CY TA BL OF ET CY NT HI AN A CL 63 04 05 30 10 00 [...] 2- 5- 00 00 IC ve ON 20 20 42 E- 40 17 17 77 PH AC 1 16 AR ET MA AM CY IN OP HE N 5- 32 5 VE 68 04 04 30 30 00 CL Ac NL 38 -0 -2 .0 00 IN ti AF 20 5- 8- 00 00 IC ve AX 03 20 20 42 IN 61 17 17 01 PH E 6 19 AR HC MA L CY ER 15 0 MG CA P GA 68 04 04 90 30 00 CL Ac BA 38 -0 -2 .0 00 IN ti PE 20 5- 8- 00 00 IC ve NT 20 20 20 42 IN 50 17 17 01 PH 5 20 AR 80 MA 0 CY MG TA BL ET OX 13 03 04 90 30 00 CL Ac YC 10 -1 -0 .0 00 IN ti OD 70 5- 7- 00 00 IC ve ON 20 20 42 E- 40 17 17 52 PH AC 1 25 AR ET MA AM CY IN OP HE N 5- 32 5 GA 68 03 03 90 30 00 CL Ac BA 38 -0 -3 .0 00 IN ti PE 20 7- 1- 00 00 IC ve NT 20 20 20 42 IN 50 17 17 01 PH 5 20 AR 80 MA 0 CY MG TA BL ET VE 68 03 03 30 30 00 CL Ac NL 38 -0 -3 .0 00 IN ti AF 20 7- 1- 00 00 IC ve AX 03 20 20 42 IN 61 17 17 01 PH E 6 19 AR HC MA L CY ER 15 0 MG CA P OX 13 02 03 90 30 00 CL Ac YC 10 -1 -1 .0 00 IN ti OD 70 5- 0- 00 00 IC ve ON 04 20 20 42 E- 40 17 17 [...] AR MG MA CY TA BL ET VE 65 12 01 30 30 00 CL Ac NL 86 -1 -1 .0 00 IN ti AF 20 3- 3- 00 00 IC ve AX 69 20 20 40 IN 70 16 17 85 PH E 5 47 AR HC MA L CY ER 15 0 MG CA P GA 68 12 01 90 30 00 CL Ac BA 38 -1 -1 .0 00 IN ti PE 20 3- 3- 00 00 IC ve NT 20 20 20 41 IN 50 16 17 34 PH 5 52 AR 80 MA 0 CY MG TA BL ET DI 00 10 10 1 30 30 [...] CA C PS UL E DI 00 09 09 0 30 30 [...] N TA A BL LL ET C MAE 00 08 08 0 20 10 [...] AM 60 3- 3- 00 MA 60 KY ve ET 27 20 20 RT 6 [...] MG TA BL ET VE 00 02 06 04 [...] TA A BL ET VE 00 02 05 03 [...] HE CY N TA A BL ET 60 04 05 00 24 5 CL 19 BE Ac 25 -1 -0 0. IN 20 SS ti 80 8- 7- 00 IC 47 ON ve 23 20 20 0 [address] 6 AR EP MA HE CY N A AM 66 04 05 00 20 10 CL 19 BE Ac OX 68 -1 -0 .0 IN 20 SS ti -C 51 8- 7- 00 IC 45 ON ve LA 00 20 20 V [address] 87 0 AR EP 5- MA HE 12 CY N 5 A MG TA BL ET CI 00 04 05 00 7. 7 CL [address] 06 -1 -0 50 IN 20 SS ti OD 58 8- 7- 0 IC 46 ON ve EX 53 20 20 [address] OT 2 AR EP IC MA HE CY N MAE A SP EN SI ON VE 00 02 04 02 60 30 CL 18 BE Ac NL 37 -1 -2 .0 IN 75 SS ti AF 84 3- 3- 00 IC 72 ON ve AX 88 20 20 IN [address] E 1 AR EP HC MA HE L CY N 37 A .5 MG TA BL ET 58 04 04 00 30 5 CL 19 MC Ac 17 -1 -2 .0 IN 18 KE ti 70 6- 3- 00 IC 92 KY ve 09 20 20 E 10 09 09 PH JR 4 AR MA WI CY LL IA M F DI 00 03 04 00 60 30 [...] EP 15 7- 2- 00 IC 92 KY ve AM 61 20 20 E 5 [...] PH ST E 1 AR EP HC JIMY HE L CY N 37 A .5 MG TA BL ET DI 00 11 01 01 60 30 CL 18 MC Ac AZ 59 -0 -0 .0 IN 13 KE ti EP 15 7- 1- 00 IC 92 KY ve AM 61 20 20 E 5 [...] MG TA BL ET DI 00 11 11 00 60 30 CL 18 MC Ac AZ 59 -0 -2 .0 IN 13 KE ti EP 15 7- 0- 00 IC 92 KY ve AM 61 20 20 E 5 91 08 08 PH JR 0 AR MG MA WI CY LL TA IA BL M ET F ME 59 11 11 00 21 6 CL 18 HU Ac TH 74 -0 -2 .0 IN 13 NT ti YL 60 7- 0- 00 IC [address] 00 20 20 ED 10 08 08 PH NA NI 3 AR NC SO MA Y LO CY C NE 4 MG DO SE PK VE 00 06 11 02 60 30 [...] EP 80 0- 7- 00 MA 37 KY ve AM 34 20 20 RT 0 [...] .5 #5 MG 91 TA BL ET 00 04 04 00 30 7 CL 16 No Ac 59 -0 -1 .0 IN 81 t ti 10 3- 0- 00 IC 92 Av ve 38 20 20 ai 50 08 08 PH la 5 AR bl MA e CY FL 68 04 04 00 1. 1 CL 16 No Ac UC 46 -0 -1 00 IN 82 t ti ON 20 4- 0- 0 IC 62 Av ve AZ 10 20 20 ai OL 34 08 08 PH la E 0 AR bl 15 MA e 0 CY MG TA BL ET 63 03 04 00 40 10 CL [...] Procedure DOS Code Location Performer Comment SUSCEPTIB 40393 [facility] L[facility]DY [facility] ANTIMICRB INC INC IAL MICRO/AGA R DILUTJ CULTURE 18902 [facility] BACTERIAL [facility] INC INC QUANTTATI VE COLONY COUNT URINE CULTURE 49667 [facility] BCT [facility] ISOL&PRSM INC INC PTV ID ISOLATE EA URINE DRUG TEST 21293 [facility] PRSMV [facility] QUAL DIR INC INC OPTICAL OBS PER DAY DRUG TEST 86091 [facility] PRSMV 7 [facility] QUAL DIR INC INC OPTICAL OBS PER DAY DRUG TEST G0481 [facility] DEFINITV [address] ID INC INC METH P DAY 8-14 DRUG CL DRUG TEST 19206 [facility] PRSMV 7 [facility] QUAL DIR INC INC OPTICAL OBS PER DAY DRUG TEST G0481 [facility] DEFINITV [address] ID INC INC METH P DAY 8-14 DRUG CL INJECTION J1100 [facility] YAIR 7 PHYSICIAN DEXAMETHO S GROUP SONE SODIUM PHOSPHATE 1 MG THERAPEUT 35352 [facility] IC 7 PHYSICIAN PROPHYLAC S GROUP TIC/DX INJECTION SUBQ/IM INJECTION J1885 [facility] 7 PHYSICIAN KETOROLAC S GROUP TROMETHAM INE PER 15 MG INJECTION J0696 [facility] 7 PHYSICIAN CEFTRIAXO S GROUP NE SODIUM PER 250 MG DRUG TEST 80518 [facility] PRSMV 7 [facility] QUAL DIR INC INC OPTICAL OBS PER DAY DRUG 59599 [facility] SCREENING 7 [facility] OPIOIDS INC INC & OPIATE ANALOGS 5/MORE DRUG TEST 39241 [facility] PRSMV 7 [facility] QUAL DIR INC INC OPTICAL OBS PER DAY MRI 58774 [facility] SPINAL 7 [facility] CANAL INC INC LUMBAR W/O CONTRAST MATERIAL 3D 41529 [facility] RENDERING 7 MEDICAL W/INTERP IMAGING & ASS POSTPROCE SS SUPERVISI ON DRUG TEST 73658 [facility] PRSMV 7 [facility] QUAL DIR INC INC OPTICAL OBS PER DAY DRUG 93236 [facility] SCREENING 7 [facility] OPIOIDS INC INC & OPIATE ANALOGS 5/MORE DRUG TEST 12910 [facility] PRSMV 7 [facility] QUAL DIR INC INC OPTICAL OBS PER DAY DRUG TEST G0481 [facility] DEFINITV [address] ID INC INC METH P DAY 8-14 DRUG CL DRUG TEST G0481 [facility] DEFINITV [address] ID INC INC METH P DAY 8-14 DRUG CL DRUG TEST 13939 [facility] PRSMV 7 [facility] QUAL DIR INC INC OPTICAL OBS PER DAY DRUG TEST G0481 [facility] DEFINITV 6 [...] DR ID INC INC METH P DAY 814 DRUG CL DRUG TST G0477 [facility] PRESUMP;C 6 [facility] PBL BEING INC INC READ DC OPT OBV ONLY DRUG TST G0477 [facility] PRESUMP;C 6 [facility] PBL BEING INC INC READ DC OPT OBV ONLY DRUG 91301 [facility] SCREENING 6 [facility] OPIOIDS INC INC & OPIATE ANALOGS 5/MORE DRUG 58381 [facility] SCREENING 6 [facility] INC INC BENZODIAZ EPINES 1-12 DRUG TST G0477 [facility] PRESUMP;C 6 [facility] PBL BEING INC INC READ DC OPT OBV ONLY TENS 11-06-201 E0720 [facility] DEVICE 5 TWO LEAD LOCALIZED STIMULATI ON OPIATE G6056 [facility] DRUG AND 5 [facility] METABOLIT INC INC ES EACH PROCEDURE TENS E0720 [facility] DEVICE 5 TWO LEAD LOCALIZED STIMULATI ON LUMB L0627 [facility] 5 TECHNOLOG TECHNOLOG SAGIT IES INC IES INC CNTRL RIGID A&P PANEL PREFAB ORTHOTIC 39147 [facility] MGMT&SAMUEL 5 [facility] [place] UXTR INC INC LXTR&/TRN K EA 15 RADEX 80616 [facility] SPINE 5 [place] LUMBSCRL [facility]THOPAED COMPL ICS PLC W/BENDING VIEWS MIN 6 MRI 20898 [facility] ERNIE SPINAL 4 MEDICAL [facility] CANAL IMAGING LUMBAR ASS W/O CONTRAST MATERIAL 3D 47354 [facility] RENDERING 4 [facility] W/INTERP INC INC & POSTPROCE SS SUPERVISI ON THERAPEUT [address] IC PX 1/> 4 [facility] LILIAM AREAS CONNIE CONNIE EACH 15 MIN EXERCISES E-STIM G0283 ST. ST. 1/> AREAS 4 LILIAM LILIAM OTH THAN CONNIE CONNIE WND CARE PART TX PLAN APPLICATI [address] ON 4 LILIAM LILIAM MODALITY CONNIE CONNIE 1/> AREAS HOT/COLD PACKS APPLICATI [address] ON 4 LILIAM LILIAM MODALITY CONNIE CONNIE 1/> AREAS HOT/COLD PACKS E-STIM G0283 ST. DOUG 1/> AREAS 4 LILIAM ARRON OTH THAN CONNIE WND CARE PART TX PLAN THERAPEUT [address] IC PX 1/> 4 LILIAM LILIAM AREAS CONNIE CONNIE EACH 15 MIN EXERCISES THERAPEUT [address] IC PX 1/> 4 [facility] 15 MIN EXERCISES E-STIM G0283 ST. ST. 1/> AREAS 4 [facility] THAN CONNIE CONNIE WND CARE PART TX PLAN APPLICATI [address]14 ST. ARI ON 4 [facility] MODALITY CONNIE 1/> AREAS HOT/COLD PACKS APPLICATI [address] ON 4 LILIAM LILIAM MODALITY CONNIE CONNIE 1/> AREAS HOT/COLD PACKS E-STIM G0283 ST. ST. 1/> AREAS 4 [facility] THAN CONNIE CONNIE WND CARE PART TX PLAN THERAPEUT 37591 ST. DOUG IC PX 1/> 4 [facility] CONNIE EACH 15 MIN EXERCISES RADIOLOGI 75750 GHANSHYAM MORRISSEY C EXAM 4 CHR CHR CHEST 2 VIEWS FRONTAL&L ATERAL RADEX 90245 [facility] SPINE 4 JOSÉ MIGUEL JOSÉ MIGUEL LUMBOSACR AL 2/3 VIEWS URNLS DIP 58622 STERNEBER STERNEBER 3 G JAIME G JAIME STICK/TAB LET RGNT AUTO W/[place] [address] ROLON ROLON ABDOMEN & 3 GAR GAR PELVIS W/CONTRAS T MATERIAL LOCM Q9967 [facility] ST 300-399 3 [facility] MG/ML CONNIE CONNIE IODINE CONCENTRA TION PER ML RADEX 65559 ROEBK[facility] ROEBKER NASAL 3 JAM JAM BONES COMPLETE MINIMUM 3 VIEWS CUL BACT 61679 COMBINED COMBINED XCPT 1 PHYSICIAN PHYSICIAN URINE S LA S LA BLOOD/STO OL AEROBIC ISOL INCISION 39128 [facility] JAIMEE & 1 VALLEY GERMAINE DRAINAGE INTERNAL ABSCESS MEDI SIMPLE/SI NGLE SUSCEPTIB 80953 COMBINED COMBINED ILITY 1 PHYSICIAN PHYSICIAN STUDY S LA S LA ANTIMICRO BIAL DISK METHOD BLOOD 72304 [facility] COUNT 8 [facility] COMPLETE INC INC AUTO&[place] [address] [facility] FOLIC 8 [facility] ACID INC INC SERUM CYANOCOBA 59526 [facility] V[facility] ELIO 8 [facility] VITAMIN INC INC B-12 INCISION 51982 [facility] MCKEMILuke & 8 VALLEY JR, DRAINAGE INTERNAL REJI F ABSCESS MED SIMPLE/SI NGLE Encounters Encounter Start End Date Code Location Performer Type Date [facility] - 7 7 [facility] RU[facility] - 7 7 [facility] OUTPATIEN INC T OFFICE 67075 [facility] YAIR OUTPATIEN 7 7 PHYSICIAN T VISIT S GROUP 15 MINUTES OFFICE 53502 [facility] YAIR OUTPATIEN 7 7 PHYSICIAN T VISIT S GROUP 15 MINUTES EMERGENCY 01748 [facility] 7 7 EMERGENCY DEPARTMEN T VISIT PHYSICIAN HIGH/URGE S NT SEVERITY [facility] - 7 7 [facility] OUTPATIEN INC T OFFICE 47224 [facility] YAIR OUTPATIEN 7 7 PHYSICIAN T VISIT S GROUP 25 MINUTES HOSPITAL RU[facility] - 7 7 [facility] OUTPATIEN INC T OFFICE 99610 [facility] YAIR OUTPATIEN 7 7 PHYSICIAN T VISIT S GROUP 25 MINUTES HOSPITAL RU[facility] - 7 7 [facility] OUTPATIEN INC [facility] RUBI - 7 7 [facility] OUTPATIEN INC T OFFICE 89173 [facility] YAIR OUTPATIEN 7 7 PHYSICIAN T VISIT S GROUP 15 MINUTES OFFICE 00352 [facility] YAIR OUTPATIEN 7 7 PHYSICIAN T VISIT 5 S GROUP MINUTES HOSPITAL [facility] - 7 7 [facility] OUTPATIEN INC T OFFICE 06642 [facility] YAIR OUTPATIEN 7 7 PHYSICIAN T VISIT S GROUP 25 MINUTES HOSPITAL RU[facility] - 7 7 [facility] OUTPATIEN INC [facility] RU[facility] - 6 6 [facility] RUBI - 6 6 [facility] HOSP[facility] RUBI - 6 6 [facility] RUBI - 6 6 [facility]OS[facility] RUBI [facility] 6 6 [facility] 6 [facility] 6 6 [facility] RU[facility] - 6 6 [facility] - 6 6 [facility] [place] [facility] 81606 [facility] 6 6 EMERGENCY DEPARTMEN T VISIT PHYSICIAN HIGH/URGE S [facility]PITAL RUBI - 6 6 [facility] RUBI [facility] 6 6 [facility] 06739 [facility] YAIR OUTPATIEN 6 6 PHYSICIAN VICENTA T VISIT S GROUP 10 MINUTES OFFICE 51833 [facility] YAIR OUTPATIEN 5 5 PHYSICIAN VICENTA T VISIT S GROUP 10 MINUTES OFFICE 30257 [facility] 5 5 PHYSICIAN VICENTA T VISIT S GROUP 10 MINUTES OFFICE 48124 SAUL JAIN 5 5 MD ALEXEY, T VISIT PSC 10 MINUTES HOSPITAL [facility] - 5 5 [facility] 84977 SAUL JAIN 5 5 MD ALEXEY, T VISIT PSC 10 MINUTES OFFICE 66516 LEENA Stanford 5 T VISIT 10 MINUTES [facility]OSP[facility] - 5 5 [facility] - 5 5 [facility] - 5 5 [facility] INC T OFFICE 02231 [facility] OUTPATIEN 5 5 [facility] T VISIT INC 10 MINUTES OFFICE 71442 LEENA BLACKBURN BUX ANJ OUTPATIEN 5 5 MD T NEW 30 MINUTES EMERGENCY 61772 [facility] GIUSEPPE 5 5 EMERGENCY ANT DEPARTMEN T VISIT PHYSICIAN HIGH/URGE S NT SEVERITY OFFICE 84398 [facility] YAIR OUTPATIEN 5 5 PHYSICIAN VICENTA T VISIT S GROUP 10 MINUTES OFFICE 30727 [facility] [place] [facility] 5 5 [place] I[place] ORTHOPAED NEW/ESTAB ICS PLC PATIENT 60 MIN HOSPITAL RUBI - 4 4 [facility] OFF[facility] 19594 [facility] YAIR OUTPATIEN 4 4 PHYSICIAN VICENTA T VISIT S GROUP [address] - 4 4 [facility] OUTPATIEN [facility] ST[facility] - 4 4 [place] OUTPATIEN [facility] OFFICE 88189 [facility] YAIR OUTPATIEN 4 4 PHYSICIAN VICENTA T VISIT S GROUP 10 MINUTES OFFICE 04232 [facility] YAIR OUTPATIEN 4 4 PHYSICIAN VICENTA T NEW 20 S GROUP MINUTES EMERGENCY 31852 HARMAN HAMMER 4 4 LARA LARA DEPARTMEN T VISIT MODERATE SEVERITY [facility] ST[facility] - 4 4 [facility] OUTPATIEN CONNIE T OFFICE 07594 JOSE GARCIA OUTPATIEN 4 4 [facility] T NEW 45 MINUTES EMERGENCY 92440 ENRIQUE NUNEZ 4 4 MAYTE MAYTE DEPARTMEN T VISIT HIGH/URGE NT SEVERITY OFFICE 08626 STERNEBER STERNEBER OUTPATIEN 3 3 G JAIME G JAIME T VISIT [address] - 3 3 [facility] OUTPATIEN CONNIE T OFFICE 98464 KARL BARAJAS OUTPATIEN 3 3 GERSON GERSON T VISIT 15 MINUTES OFFICE 54290 BONNER VIR BONNER VIR OUTPATIEN 3 3 T VISIT 15 MINUTES EMERGENCY 59624 HAROLDO ZARCO 3 3 MAUREEN REDDY DEPARTMEN T VISIT MODERATE SEVERITY EMERGENCY 43114 ST BARB 2 2 [facility]IGH/URGE NT SEVERITY HOSPITAL [facility] - 1 1 [facility] OUTPATIEN INC T EMERGENCY 36184 TIARRA MAZARIEGOS 1 1 EMERGENCY [facility] DEPARTMEN SERVICES T VISIT MODERATE SEVERITY OFFICE 47206 [place] OUTPATIEN 1 1 [facility] T VISIT INTERNAL 15 MED MINUTES EMERGENCY 95541 [facility] 1 1 [facility] DEPARTMEN INC T VISIT LOW/MODER SEVERITY OFFICE 19347 [place] JAIMEE OUTPATIEN 1 1 [facility] T VISIT INTERNAL 15 MEDI MINUTES EMERGENCY 35496 TIARRA FIGUEREDO 1 1 EMERGENCY DEPART[facility] SERVICES T VISIT HIGH/URGE NT SEVERITY EMERGENCY 19493 [facility] 1 1 [facility] DEPARTMEN INC T VISIT LOW/MODER SEVERITY HOSPITAL [facility] - 1 1 [facility] OUTPATIEN INC T EMERGENCY 39151 [facility] 1 1 [facility] DEPARTMEN INC T VISIT LOW/MODER SEVERITY HOSPITAL RU[facility] - 1 1 [facility] OUTPATIEN INC T EMERGENCY 47966 TIARRA MAZARIEGOS 1 1 EMERGENCY [facility] DEPARTMEN SERVICES T VISIT HIGH/URGE NT SEVERITY OFFICE 33502 [facility], OUTPATIEN 9 9 REJI Fong VISIT INTERNAL 25 MED MINUTES OFFICE 36082 [facility] OUTPATIEN 8 8 Ajit MENDOZA JR VISIT INTERNAL [facility] 15 MED MINUTES [facility] - 8 8 [facility] OFF[facility] 73115 [facility] OUT[facility]IEN 8 8 REJI Fong VISIT INTERNAL 10 MED MINUTES OFFICE 70703 [facility] 8 8 Ajit MENDOZA JR VISIT 5 INTERNAL [facility] MINUTES MED
--- OUTSIDE RECORDS SUMMARY | 2017-03-18 23:14 | External Medical Summary Rpt ---
Author Author , HASMUKH Hunter HASMUKH Address Unknown Phone [email or web address] Care Team Providers Care Commercial Assistant Name Role Phone [employer] Unavailable Unavailable [...] [facility], Unavailable Unavailable [facility] FANG TRA, FANG TRA Unavailable Unavailable GHANSHYAM CHR, GHANSHYAM Unavailable Unavailable CHR GHANSHYAM CHR, GHANSHYAM Unavailable Unavailable [facility] Unavailable Unavailable IM[facility], [facility] Unavailable Unavailable [facility], [facility] Unavailable Unavailable [facility], [facility] Unavailable Unavailable SERVICES, [facility] REJI GONZALES JR Unavailable Kendra [...] ARI ANASTACIA, ARI Unavailable Unavailable ANASTACIA [facility], Un[facility], Unavailable Unavailable [facility] STERNEBERG JAIME, Unavailable Unavailable STERNEBERG JAIME [facility] Unavailable Unavailable #584, [facility]84 [facility] Unavailable Unavailable #591, [facility] # Unavailable Unavailable [id number], [facility] # [id number] Purpose Continuity of Care Document - 11-03-2007 through 2016 Problems Code Diagnosis DOS Provider Status R300 DYSURIA 02-13-2017 [facility] [id number] OTHER LONG 02-13-2017 [facility] TERM [facility] CURRENT INC DRUG THERAPY K047 PERIAPICAL 12-19-2016 [facility] ABSCESS PHYSICIANS WITHOUT GROUP SINUS 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 K029 DENTAL 11-27-2016 [facility] UNSPECIFIED PHYSICIANS K0889 OTHER 11-27-2016 [facility] SPECIFIED [facility]ERG[facility]Y DISORDERS PHYSICIANS OF TEETH SUPPORT STRCT Z1231 ENCOUNTER 11-20-2016 [facility] SCREENING PHYSICIANS MAMMO MALIG GROUP NEOPLASM BREAST M1288 OTHER 10-24-2016 [facility] SPECIFIC PHYSICIANS ARTHROPATHI GROUP ES NEC OTHER SPEC SITE M9983 OTHER 10-24-2016 [facility] BIOMECHANIC PHYSICIANS AL LESIONS GROUP OF LUMBAR REGION M4316 SPONDYLOLIS 10-10-2016 [facility] REGION M5117 INTERVERTEB 10-10-2016 [facility] [facility] D/O IMAGING ASS W/RADICULOP ATHY LS RGN M545 LOW BACK 10-10-2016 [facility] M5126 OTH 09-26-2016 [facility] INTERVERTEB PHYSICIANS RAL DISC GROUP DISPLACEMEN T LUMBAR RGN M5127 OT 01-18-2016 [facility] INTERVERTEB [facility] RAL DISC INC DISPLACEMEN T LS REGION R1031 RIGHT LOWER 09-17-2015 [facility] PAIN PHYSICIANS R197 DIARRHEA 09-17-2015 [facility] UNSPECIFIED EMERGENCY PHYSICIANS 49899 DEGEN 03-31-2015 SAUL BLACKBURN, LUMBAR/LUMB , PSC OSACRAL INTERVERTEB RAL DISC 7244 THORACIC/NEAL 03-31-2015 TASHA MURILLO MD, PSC NEURITIS/RA DICULITIS UNSPEC V5789 OTHER 12-09-2014 [facility] SPECIFIED [facility] INC ION PROCEDURE OTHER 4610 ACUTE 09-21-2014 [facility] SINUSITIS PHYSICIANS 05597 DISPLCMT 09-10-2014 [facility] 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 7384 ACQUIRED 09-09-2014 [facility] [place] [facility] PLC 7213 LUMBOSACRAL 08-03-2014 [facility] SPONDYLOSIS IMAGING ASS WITHOUT MYELOPATHY 7245 UNSPECIFIED 08-03-2014 [facility] BACKACHE [facility] INC V571 OTHER 07-12-2014 [facility] CONNIE 24707 CHEST PAIN 03-04-2014 [facility]SHYAM [facility] UNSPECIFIED 7242 LUMBAGO 12-08-2013 JOSE JOSÉ MIGUEL 6212 HYPERTROPHY 12-02-2013 GARCIA PACHECO OF UTERUS 6253 DYSMENORRHE 12-02-2013 GARCIA PACHECO A 6259 UNSPEC 12-02-2013 GARCIA PACHECO SYMPTOM ASSOC W/FEMALE GENITAL ORGANS 14973 ABDOMINAL 12-02-2013 GARCIA PACHECO PAIN RIGHT LOWER QUADRANT 6238 OTHER 11-30-2013 ENRIQUE HU SPECIFIED NONINFLAMMA TORY DISORDER VAGINA 6829 CELLULITIS 12-08-2012 KARL GERSON AND ABSCESS OF UNSPECIFIED SITE 37599 GENERALIZED 08-21-2012 [facility] ANXIETY DISORDER V5869 LONG-TERM 08-21-2012 [facility] VIR (CURRENT) USE OF OTHER MEDICATIONS 7840 HEADACHE 08-20-2012 ROEBKER JAM 920 CONTUSION 08-20-2012 HAROLDO MAUREEN OF FACE SCALP AND NECK EXCEPT EYE 9599 INJURY 08-20-2012 ROEBKER JAM OTHER AND UNSPECIFIED UNSPECIFIED SITE 6235 LEUKORRHEA 04-19-2012 [facility] SPECIFIED MED CTR INFECTIVE 5283 CELLULITIS 03-17-2011 [facility] AND ABSCESS VALLEY OF ORAL INTERNAL SOFT MED TISSUES 6826 CELLULITIS 03-17-2011 TIARRA AND ABSCESS EMERGENCY OF LEG SERVICES EXCEPT FOOT 1109 DERMATOPHYT 01-29-2011 [facility] [place] UNSPECIFIED INTERNAL SITE MEDI 41722 ABDOMINAL 01-06-2011 [facility], [facility]ERGENCY GENERALIZED SERVICES 7820 DISTURBANCE 08-28-2010 [facility] OF SKIN [facility] INC 43496 OTHER DRUG 08-28-2010 [facility] 37622 UNSPECIFIED 11-27-2008 [facility] INFECTIVE [place] OTITIS INTERNAL EXTERNA MED 3814 NONSUPPRATV 11-27-2008 [facility] OTITIS [facility] MEDIA NOT INTERNAL SPEC MED ACUT/CHRON 485 BRONCHOPNEU 11-27-2008 [facility] ORGANISM INTERNAL UNSPECIFIED MED 7862 COUGH 11-27-2008 [facility] INTERNAL MED 47948 OTHER 11-20-2007 [facility] ANXIETY [place] STATES INTERNAL MED 92230 RESTLESS 11-20-2007 [facility] LEGS [place] SYNDROME INTERNAL MED 90181 UNSPECIFIED 11-14-2007 [facility] VAGINITIS [place] AND INTERNAL VULVOVAGINI MED TIS 7062 SEBACEOUS 11-14-2007 [facility] CYST [place] INTERNAL MED Medications Na ND Rx Da [...] 07 07 14 7 00 CL Ac AZ 57 -0 -2 .0 00 IN ti [...] AM 60 3- 3- 00 MA 60 SD ve ET 27 20 20 RT 6 [...] 00 7. 7 CL 19 BE Ac AZ 06 -1 -0 50 IN 20 SS [...] ti 70 6- 3- 00 IC 92 SD ve 09 20 20 E 10 09 [...] EP 15 7- 2- 00 IC 92 SD ve AM 61 20 20 E 5 [...] EP 15 7- 1- 00 IC 92 SD ve AM 61 20 20 E 5 [...] EP 15 7- 0- 00 IC 92 SD ve AM 61 20 20 E 5 91 08 08 PH JR 0 AR MG MA WI CY LL TA IA BL M ET F ME 59 11 11 00 21 6 CL 18 HU Ac TH 74 -0 -2 .0 IN 13 NT ti YL 60 7- 0- 00 IC 91 ER ve AZ 00 20 20 ED 10 08 08 [...] EP 80 0- 7- 00 MA 37 SD ve AM 34 20 20 RT 0 [...] Procedure DOS Code Location Performer Comment SUSCEPTIB 14300 [facility] V[facility] LTY STDY 7 [facility] ANTIMICRB INC INC IAL MICRO/AGA R DILUTJ CULTURE 63118 [facility] BACTERIAL 7 [facility] INC INC QUANTTATI VE COLONY COUNT URINE CULTURE 47172 [facility] BCT 7 [facility] ISOL&PRSM INC INC PTV ID ISOLATE EA URINE DRUG TEST 51544 [facility] PRSMV 7 [facility] QUAL DIR INC INC OPTICAL OBS PER DAY DRUG TEST 90742 [facility] VENEGAS PRSMV 7 [facility] QUAL DIR INC INC OPTICAL OBS PER DAY DRUG TEST G0481 [facility] DEFINITV [address] ID INC INC METH P DAY 8-14 DRUG CL DRUG TEST 61762 [facility] VEENGAS PRSMV 7 [facility] QUAL DIR INC INC OPTICAL OBS PER DAY DRUG TEST G0481 [facility] DEFINITV [address] ID INC INC METH P DAY 8-14 DRUG CL INJECTION J1100 [facility] Y[facility]IR 7 PHYSICIAN DEXAMETHO S GROUP SONE SODIUM PHOSPHATE 1 MG THERAPEUT 60803 [facility] IC 7 PHYSICIAN PROPHYLAC S GROUP TIC/DX INJECTION SUBQ/IM [facility]JECTION J1885 [facility] KETOROLAC S GROUP TROMETHAM INE PER 15 MG INJECTION J0696 [facility] PHYSICIAN CEFTRIAXO S GROUP NE SODIUM PER 250 MG DRUG TEST 53411 [facility] PRSMV 7 [facility] QUAL DIR INC INC OPTICAL OBS PER DAY DRUG 81591 [facility] SCREENING 7 [facility] OPIOIDS INC INC & OPIATE ANALOGS 5/MORE DRUG TEST 31209 [facility] PRSMV 7 [facility] QUAL DIR INC INC OPTICAL OBS PER DAY MRI 44954 [facility] SPINAL 7 [facility] CANAL INC INC LUMBAR W/O CONTRAST MATERIAL 3D 26445 [facility] 7 MEDICAL W/INTERP IMAGING & ASS POSTPROCE SS SUPERVISI ON DRUG TEST 75616 [facility] PRSMV 7 [facility] QUAL DIR INC INC OPTICAL OBS PER DAY DRUG 86351 [facility] SCREENING 7 [facility] OPIOIDS INC INC & OPIATE ANALOGS 5/MORE DRUG TEST 98893 [facility] PRSMV 7 [facility] QUAL DIR INC INC OPTICAL OBS PER DAY DRUG TEST G0481 [facility] DEFINITV [address] ID INC INC METH P DAY 8-14 DRUG CL DRUG TEST G0481 [facility] DEFINITV [address] ID INC INC METH P DAY 8-14 DRUG CL DRUG TEST 00235 [facility] PRSMV 7 [facility] MEM [...] INC READ DC OPT OBV ONLY DRUG 13168 [facility] SCREENING 6 [facility] OPIOIDS INC INC & OPIATE ANALOGS 5/MORE DRUG 20409 [facility] SCREENING 6 [facility] MEM [...] INC CNTRL RIGID A&P PANEL PREFAB ORTHOTIC 81967 [facility] MGMT&SAMUEL 5 [facility] [place] UXTR INC INC LXTR&/TRN K EA 15 RADEX 82503 [facility] SPINE 5 [place] LUMBSCRL ORTHOPAED COMPL ICS PLC W/BENDING VIEWS MIN 6 MRI 71255 [place] ERNIE SPINAL 4 MEDICAL [place] CANAL IMAGING LUMBAR ASS W/O CONTRAST MATERIAL 3D 25531 [facility] RENDERING 4 [facility] W/INTERP INC INC & POSTPROCE SS SUPERVISI ON THERAPEUT [address] IC PX 1/> 4 [facility] L[facility] AREAS CONNIE CONNIE EACH 15 MIN EXERCISES E-STIM G0283 ST. ST. 1/> AREAS 4 [facility]IL[facility] L[facility]IAM OTH THAN CONNIE CONNIE WND CARE PART TX PLAN APPLICATI [address] ON 4 L[facility] L[facility] MODALITY CONNIE CONNIE 1/> AREAS HOT/COLD PACKS APPLICATI [address] ON 4 LILIAM LILIAM MODALITY CONNIE CONNIE 1/> AREAS HOT/COLD PACKS E-STIM G0283 ST. DOUG 1/> AREAS 4 [facility] ARRON OTH THAN CONNIE WND CARE PART TX PLAN THERAPEUT [address] IC PX 1/> 4 LILIAM LILIAM AREAS CONNIE CONNIE EACH 15 MIN EXERCISES THERAPEUT [address] IC PX 1/> 4 [facility] 15 MIN EXERCISES E-STIM G0283 [facility]. ST. 1/> AREAS 4 [facility] THAN CONNIE CONNIE WND CARE PART TX PLAN APPLICATI 27115 ST. ARI ON 4 [facility] MODALITY OCNNIE 1/> AREAS HOT/COLD PACKS APPLICATI [address] ON 4 LILIAM LILIAM MODALITY CONNIE CONNIE 1/> AREAS HOT/COLD PACKS E-STIM G0283 ST. ST. 1/> AREAS 4 [facility] THAN CONNIE CONNIE WND CARE PART TX PLAN THERAPEUT 42824 ST. DUOG IC PX 1/> 4 [facility] CONNIE EACH 15 MIN EXERCISES RADIOLOGI 04860 GHANSHYAM MORRISSEY C EXAM 4 CHR CHR CHEST 2 VIEWS FRONTAL&L ATERAL RADEX 54009 [facility] SPINE 4 JOSÉ MIGUEL JOSÉ MIGUEL LUMBOSACR AL 2/3 VIEWS URNLS DIP 96128 STERNEBER STERNEBER 3 G JAIME G JAIME STICK/TAB LET RGNT AUTO W/[place] [address] ROLON ROLON ABDOMEN & 3 GAR GAR PELVIS W/CONTRAS T MATERIAL LOCM Q99[address] [facility] 300-399 3 [facility] MG/ML CONNIE CONNIE IODINE CONCENTRA TION PER ML RADEX 36587 ROEBKER ROEBKER NASAL 3 JAM JAM BONES COMPLETE MINIMUM 3 VIEWS CUL BACT 69080 COMBINED COMBINED XCPT 1 PHYSICIAN PHYSICIAN URINE S LA S LA BLOOD/STO OL AEROBIC ISOL INCISION 92054 [facility] JAIMEE & 1 VALLEY GERMAINE DRAINAGE INTERNAL ABSCESS MEDI SIMPLE/SI NGLE SUSCEPTIB 81531 COMBINED COMBINED ILITY 1 PHYSICIAN PHYSICIAN STUDY S LA S LA ANTIMICRO BIAL DISK METHOD BLOOD 37645 [facility] COUNT 8 [facility] COMPLETE INC INC AUTO&[place] [address] [facility] FOLIC 8 [facility] ACID INC INC SERUM CYANOCOBA 47216 [facility] ELIO 8 [facility] VITAMIN INC INC B-12 INCISION 14393 [facility] MCKEMILuke & 8 VALLEY JR, DRAINAGE INTERNAL REJI F ABSCESS MED SIMPLE/SI NGLE Encounters Encounter Start End Date Code Location Performer Type Date [facility] - 7 7 [facility] OUTPATIEN INC [facility] RUBI - 7 7 [facility] OUTPATIEN INC [facility] RUBI - 7 7 [facility] OUTPATIEN INC T OFFICE 87475 [facility] YAIR OUTPATIEN 7 7 PHYSICIAN T VISIT S GROUP 15 MINUTES OFFICE 83066 [facility] Y[facility]IR OUTPATIEN 7 7 PHYSICIAN T VISIT S GROUP 15 MINUTES EMERGENCY 68487 [facility] OLIVEIRA 7 7 EMERGENCY DEPARTMEN T VISIT PHYSICIAN HIGH/URGE S NT SEVERITY [facility] RUBI - 7 7 [facility] OUTPATIEN INC T OFFICE 29638 [facility] Y[facility]IR OUTPATIEN 7 7 PHYSICIAN T VISIT S GROUP 25 MINUTES HOSPITAL RU[facility] - 7 7 [facility] OUTPATIEN INC T OFFICE 91712 [facility] Y[facility]IR OUTPATIEN 7 7 PHYSICIAN T VISIT S GROUP 25 MINUTES HOSPITAL RUBI - 7 7 [facility] OUTPATIEN INC [facility] RUBI - 7 7 [facility] OUTPATIEN INC T OFFICE 97192 [facility] Y[facility] OUTPATIEN 7 7 PHYSICIAN T VISIT S GROUP 15 MINUTES OFFICE 00101 [facility] OUTPATIEN 7 7 PHYSICIAN T VISIT 5 S GROUP MINUTES HOSPITAL RUBI - 7 7 [facility] OUTPATIEN INC T OFFICE 03285 [facility] Y[facility]IR OUTPATIEN 7 7 PHYSICIAN T VISIT S GROUP 25 MINUTES HOSPITAL RUBI - 7 7 [facility] OUTPATIEN INC [facility] RUBI - 6 6 [facility] OUTPATIEN [facility] RUBI - 6 6 [facility] RUBI - 6 6 [facility] RU[facility] - 6 6 [facility] - 6 [facility] 6 [facility] - 6 6 [facility] - 6 6 [facility] 82088 [facility] 6 6 EMERGENCY DEPARTMEN T VISIT PHYSICIAN HIGH/URGE S [facility] RUBI - 6 6 [facility] RUBI - 6 6 [facility] OFF[facility] 93249 [facility] OUTPATIEN 6 6 PHYSICIAN VICENTA T VISIT S GROUP 10 MINUTES OFFICE 96074 [facility] OUTPATIEN 5 5 PHYSICIAN VICENTA T VISIT S GROUP 10 MINUTES OFFICE 28497 [facility] PHYSICIAN VICENTA T VISIT S GROUP 10 MINUTES OFFICE 41165 SAUL JAIN 5 5 MD ALEXEY, T VISIT PSC 10 MINUTES [facility]OSPITAL [facility] - 5 5 [facility] OFFICE 84463 SAUL JAIN 5 5 MD ALEXEY, T VISIT PSC 10 MINUTES OFFICE 05376 LEENA Stanford 5 T VISIT 10 MINUTES HOSPITAL RU[facility] - 5 5 [facility] OUTPATIEN INC [facility] - 5 5 [facility] OUTPATIEN INC [facility] - 5 5 [facility] OUTPATIEN INC T OFFICE 66101 [facility] OUTPATIEN 5 5 [facility] T VISIT INC 10 MINUTES OFFICE 06841 LEENA BLACKBURN BUX ANJ OUTPATIEN 5 5 MD T NEW 30 MINUTES EMERGENCY 38341 [facility] GIUSEPPE 5 5 EMERGENCY ANT DEPARTMEN T VISIT PHYSICIAN HIGH/URGE S NT SEVERITY OFFICE 79062 [facility] Y[facility] OUTPATIEN 5 5 PHYSICIAN VICENTA T VISIT S GROUP 10 MINUTES OFFICE 31980 [facility] 5 5 [place] ION ORTHOPAED NEW/ESTAB ICS PLC PATIENT 60 MIN HOSPITAL RU[facility] - 4 4 [facility] OUTPATIEN [facility] T OFFICE 76651 [facility] YAIR OUTPATIEN 4 4 PHYSICIAN VICENTA T VISIT S GROUP [address] - 4 4 [facility] OUTPATIEN [facility] ST[facility] - 4 4 [facility] OUTPATIEN [facility] OFFICE 91761 [facility] Y[facility] OUTPATIEN 4 4 PHYSICIAN VICENTA T VISIT S GROUP 10 MINUTES OFFICE 92020 [facility] OUTPATIEN 4 4 PHYSICIAN VICENTA T NEW 20 S GROUP MINUTES EMERGENCY 14894 HARMAN HAMMER 4 4 LARA LARA DEPARTMEN T VISIT MODERATE SEVERITY [facility] ST[facility] - 4 4 [facility] OUTPATIEN CONNIE T OFFICE 61786 JOSE GARCIA OUTPATIEN 4 4 [facility] T NEW 45 MINUTES EMERGENCY 04912 ENRIQUE NUNEZ 4 4 MAYTE MAYTE DEPARTMEN T VISIT HIGH/URGE NT SEVERITY OFFICE 21889 STERNEBER STERNEBER OUTPATIEN 3 3 G JAIME G JAIME T VISIT [address] - 3 3 [facility] OUTPATIEN CONNIE T OFFICE 69989 KARL BARAJAS OUTPATIEN 3 3 GERSON GERSON T VISIT 15 MINUTES OFFICE 27366 [facility] VIR BONNER VIR OUTPATIEN 3 3 T VISIT 15 MINUTES EMERGENCY 97963 HAROLDO ZARCO 3 3 MAUREEN REDDY DEPARTMEN T VISIT MODERATE SEVERITY EMERGENCY 37831 ST BARB 2 2 [facility] T VISIT HIGH/URGE NT SEVERITY [facility]OSPITAL [facility] - 1 1 [facility] OUTPATIEN INC T EMERGENCY 06061 TIARRA MAZARIEGOS [address] [facility] DEPARTMEN SERVICES T VISIT MODERATE SEVERITY OFFICE 63176 [facility] 1 1 [place] T VISIT INTERNAL 15 MED MINUTES EMERGENCY 91671 [facility] 1 1 [facility] DEPARTMEN INC T VISIT LOW/MODER SEVERITY OFFICE 08066 [facility] JAIMEE OUTPATIEN 1 1 [facility] T VISIT INTERNAL 15 MEDI MINUTES EMERGENCY 98614 TIARRA FIGUEREDO 1 1 EMERGENCY DEPARTMEN SERVICES T VISIT HIGH/URGE NT SEVERITY EMERGENCY 73147 [facility] 1 1 [facility] DEPARTMEN INC T VISIT LOW/MODER SEVERITY [facility]OSPITAL [facility] - 1 1 [facility] OUTPATIEN INC T EMERGENCY 70540 RUBI 1 1 [facility] DEPARTMEN INC T VISIT LOW/MODER SEVERITY [facility]OSPITAL [facility] - 1 1 [facility] OUTPATIEN INC T EMERGENCY 24638 TIARRA MAZARIEGOS [address] [facility] DEPARTMEN SERVICES T VISIT HIGH/URGE NT SEVERITY OFFICE 88378 [facility] BESSON, OUTPATIEN 9 9 REJI Fong VISIT INTERNAL 25 MED MINUTES OFFICE 46079 [facility] MCKEMIE OUTPATIEN 8 8 Ajit MENDOZA JR VISIT INTERNAL [facility] 15 MED MINUTES [facility] RUBI - [address] [facility] T OFFICE 95212 [facility] CISCO OUTPATIEN 8 8 REJI Fong VISIT INTERNAL 10 MED MINUTES OFFICE 43405 [facility] MCKEMIE OUTPATIEN 8 8 Ajit MENDOZA JR VISIT 5 INTERNAL [facility] MINUTES MED
--- OUTSIDE RECORDS SUMMARY | 2017-03-18 23:15 | External Medical Summary Rpt ---
Author Author HASMUKH Pineda, [employer] Organization [employer] Address Unknown Phone Unavailable
--- OUTSIDE RECORDS SUMMARY | 2017-03-18 23:15 | External Medical Summary Rpt ---
Demographics Preferred Language Bahamian Marital Status Unknown Religion Affiliation Unknown Race Unknown Ethnic Group Unknown Author Author HASMUKH Address Unknown Phone Immunization No patient found.
--- OUTSIDE RECORDS SUMMARY | 2017-03-18 23:15 | External Medical Summary Rpt ---
Demographics Preferred Language Malawian Marital Status Unknown Jain Affiliation Unknown Race Unknown Ethnic Group Unknown Author Author HASMUKH Address Unknown Phone Immunization No patient found.
== END 2017-03-18 22:58 | disposition home or self-care (01) ==
LOC: ER 21:46
DX: M51.16 Intervertebral disc disorders with radiculopathy, lumbar region (principal); N94.6 Dysmenorrhea, unspecified